=== PATIENT | male | born 1955 | race Caucasian/White ===

== ENCOUNTER 2018-03-04 14:46 | Inpatient (IN) ==
[2018-03-04] MEDS ORDERED: NITROGLYCERIN 0.4 MG SUBLINGUAL TABLET SL PRN (15:38)
[2018-03-04] MEDS ORDERED: FALL RISK - PHARMACY CONSULT MC ONE ×2 (15:38)
[2018-03-04] MEDS ORDERED: BISACODYL 10 MG SUPPOSITORY RECTALLY PRN (15:38)
[2018-03-04] MEDS ORDERED: ZOLPIDEM 5 MG TABLET PO PRN (15:38)
[2018-03-04] MEDS ORDERED: ACETAMINOPHEN 325 MG TABLET PO PRN (15:38)
[2018-03-04] MEDS ORDERED: MAG-AL + SIM ORAL LIQUID 30ml PO PRN (15:38)
[2018-03-04] MEDS ORDERED: LORazepam 0.5 MG TABLET PO PRN (15:38)
--- NOTE | 2018-03-04 15:49 | IRU History & Physical Report ---
HPI IRU Date: Date: 03/04/18 Time: 1544 Chief complaint: I had a stroke HPI: Mr. Mendez is a very pleasant 62-year-old male referred by Dr. Kathy Hermosillo. His primary care physician is Dr. Kalen Nice. (His daughter is Thelma Levi MD). He presented to the emergency department at [facility] on 02/27/2018 with tingling and numbness on the right side of his body. This started at home initially with some numbness and tingling of the right side of his face on the evening prior to admission (02/26/2018). There was no discomfort or pain. Tingling involved the right face, as well as the right arm and right leg. No other systemic symptoms was noted. Patient did admit to being noncompliant with his antihypertensive medication as well as treatment for his diabetes for quite some time. In the emergency department his blood pressure was quite high at 191/116. CT scan of the head revealed no acute hemorrhage and no acute infarct. There was evidence of chronic right frontal lacunar infarct and mild periventricular white matter disease. He was outside the window for TPA. He was given aspirin and fluids as well as insulin. He was then admitted to the hospitalist service on 02/27/2018. At that time he did report weakness in the right arm and leg with difficulty with right hand coordination and fine motor skills. He also had a mild headache and some difficulty walking and felt off balance. He felt numbness and lack of sensation in the right side of his body with secondary difficulty controlling the movement on the right side. As noted, the patient has history of hypertension but does not take his medications on a regular basis. Typically his blood pressures are 180 or so according to the patient. He also has history of diabetes mellitus but does not take his blood sugars on a regular basis. His blood sugars may often be around 400 when he does check them. He does not see his doctor on a regular basis and does not know his A1C at home. On acute care it was 12.5% on 02/27/18. Follow-up CT scan of the head on February 28 showed no acute changes. Carotid Doppler study 02/28/2018 showed no significant stenoses. MRI brain 02/28/2018 did demonstrate acute infarct in the left thalamus. He was seen by Dr. Arriaza who confirmed that diagnosis. Dr. Arriaza recommended Plavix plus aspirin 81 mg daily for 3-6 months with continued Plavix alone after that if no new symptoms. He recommended optimizing treatment for hyperlipidemia, hypertension and diabetes along with initiation of PT and OT. With regard to his cardiac status, he has seen Dr. Londono in the past. He has history of minimal coronary disease in 2008 on catheterization. Transthoracic echocardiogram 03/03/2018 demonstrated ejection fraction 30-35% without evidence of intracardiac thrombus nor PFO by bubble study. He did undergo cardiac catheterization Dr. Londono on 03/03/2018 demonstrating small vessel disease along with LV dysfunction with ejection fraction 30-35%. A defibrillator vest was recommended at this time. He was diagnosed with nonischemic dilated cardiomyopathy. Prior to this event, the patient was independent with all activities of daily living. He was able to ambulate without assistive device and independently. 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 He is very active. The patient is right-handed. He reports it has been difficult to write since the stroke. He has also been more emotional since the stroke although states that he was somewhat that way prior. Patient lives in his own home with his . They have one step to get into the home. On acute care his blood pressures have continued to be a bit elevated with diastolics typically around 90-111. His systolic BP's have been 140's - 160's. His blood sugars have improved and are now running 158-to 39. Had a 330 blood sugar a couple of days ago. It is also noted that he has had some hypercalcemia with elevated PTH. His LDH is 102 with a goal of 70 or less. Currently the patient is independent with eating but requires minimum assistance with grooming, bathing and upper body dressing. He requires moderate assistance with lower body dressing, minimum assistance with toileting, bed/ chair/wheelchair transfers and toilet transfers. He requires minimum assistance with walking with a rolling walker 300 feet. He requires minimal assistance for comprehension. He is impulsive at times and demonstrates poor safety awareness despite instructions. Uncertain if he has adequate carryover ability. Also reports feeling somewhat dizzy. He finds it difficult to control movement in the right arm and leg. The following medical conditions are noted and require active monitoring and/or management: 1. Acute left thalamic ischemic stroke with the following deficits: Markedly reduced sensation involving the right face, right upper and lower extremities with subsequent inability to adequately control movement in these areas. In addition, he has objective evidence of reduced strength in the right upper and lower extremities with reduced fine motor movement in the right hand. His speech is fluent. He does not have any evidence of dysphagia. 2. Hypertension, historically not well controlled due to medication noncompliance. Permissive hypertension at present. 3. Nonischemic dilated cardiomyopathy with ejection fraction 30-35% based on echocardiogram and left ventriculogram. He will need a LifeVest. He has some chronic tachycardia (sinus). 4. Diabetes mellitus type 2 not controlled and with poor medication compliance. A1C 12%. The following therapies will be needed: 1. Physical therapy: for transfers and ambulation and stairs. 2. Occupational therapy: for ADL's and transfers. 3. Medical management: for the above conditions. 4. 24 hour Rehabilitation Nursing to monitor and address the following: Monitoring blood sugars, blood pressures, neurologic status and cardiac status in view of his dilated cardiomyopathy. 5. Dietitian: In view of his diabetes. [facility] Patient Stated Medical History Hypertension Yes Diabetes Mellitus Type 2 Yes Hx Kidney Stones Yes Clinic Medical History (Last Updated 02/27/18 @ 14:24 by Jayshree Andino APRN) Hypercalcemia (Chronic Medical ~01/2014) Diabetes mellitus type 2, uncontrolled, without complications (Chronic Medical ~ 2010) Diabetic peripheral neuropathy associated with type 2 diabetes mellitus ( Chronic Medical) Obesity (BMI 30-39.9) (Chronic Medical) Hyperparathyroidism, primary (Chronic Medical ~07/08/16) Surgical History: Heart Cath-2008. Removal of kidney stones (patient not certain of technique). Heart cath February 2018 Family History Updates: Father at age 90. Mother at age 74 of lymphoma. 2 sisters and a brother have all . Brother had lung cancer, a sister had COPD, and other sister of suicide. She was schizophrenic. - Social History Smoking status: Never smoker Substance use type: does not use Alcohol intake frequency: holidays/special occasions only Housing: house Household members: spouse Current occupational status: employed Current occupation: [employer] business Current residence: Apartment/Private Home Social history: Patient is and lives with his in their own home. 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 He remains quite active. Review of Systems - Constitutional Constitutional: Present: fatigue, weakness, weight loss (reports maximum weight of 350 pounds. This dropped into thousand 10 1 diabetes was diagnosed. He went down to 290 and then about a year ago was 240. He believes he has lost further.) . Absent: anorexia, chills, fever(s), headache(s), lethargy, malaise, night sweats, weight gain - EENMT Eyes: Absent: blurry vision, change in vision, diplopia Mouth/Throat: Absent: changes in swallowing, painful swallowing, change in taste , bleeding gums, change in voice - Cardiovascular Cardiovascular: Absent: chest pain, palpitations, syncope, dyspnea on exertion, orthopnea, edema, cyanosis, heart murmur Rhythm: Present: regular rhythm Vascular: Absent: intermittent claudication, pedal edema, unilateral swelling - Respiratory Respiratory: Absent: cough, dyspnea, hemoptysis, dyspnea on exertion, wheezing, pain on inspiration, chest congestion, excessive phlegm production - Gastrointestinal Gastrointestinal: Absent: abdominal pain, change in bowel habits, constipation, diarrhea, dyspepsia, dysphagia, early satiety, hematochezia, melena, nausea, vomiting - Musculoskeletal Musculoskeletal: Present: myalgias. Absent: abnormal gait, arthralgias, back pain, joint swelling, limited range of motion, muscle weakness - Integumentary/Breasts Integumentary: Absent: alopecia, erythema, lesions, pruritus, rash, jaundice - Neurological Neurological: Present: focal weakness, numbness, paresthesias, weakness (right arm and leg). Absent: abnormal gait, abnormal movements, abnormal speech, confusion, convulsions, dizziness, frequent falls, headache(s), loss of vision, memory loss, tremor(s) - Psychiatric Psychiatric: Present: other (more tearful and emotional recently ). Absent: abnormal sleep pattern, anxiety, depression - Endocrine Endocrine: Absent: cold intolerance, flushing, heat intolerance, palpitations - Hematologic/Lymphatic Hematologic/Lymphatic: Absent: easy bleeding, easy bruising, lymphadenopathy - Allergic/Immunologic Allergic/Immunologic: Absent: urticaria Medications Home Medications Medication Instructions Recorded Confirmed Type Insulin Glargine [Lantus] 35 unit SQ HS 02/27/18 02/27/18 History Lisinopril [Prinivil] 40 mg PO DAILY 02/27/18 02/27/18 History Metformin XR [Glucophage Xr] 500 mg PO BID 02/27/18 02/27/18 History Allergies Allergy/AdvReac Type Severity Reaction Status Date / Time No Known Allergies Allergy Verified 02/27/18 12:00 Results IRU - Labs Labs: I have reviewed inpatient records. Exam - Constitutional Present: no acute distress, well nourished, well developed, obese, cooperative Comments: He is awake and alert and well-oriented. Occasionally somewhat tearful. Speech not slurred. - Routine HEENT Exam Head: Present: normocephalic, atraumatic. Absent: cushingoid faces, abrasion, laceration, hematoma Eye: Present: EOMI, PERRL. Absent: conjunctival icterus, scleral injection, periorbital swelling, nystagmus ENT: Present: mucous membranes moist, oropharynx clear Comments: Has a single artificial tooth in maxilla. Rest of his dentition appears to be unremarkable. - Routine Neck Exam Present: supple, full ROM, trachea midline. Absent: lymphadenopathy, thyromegaly, tenderness, swelling - Routine Chest/Breast/Axilla Exam Chest wall: Absent: tenderness, mass Axillae: Absent: lymphadenopathy, mass - Routine Respiratory Exam Present: CTA bilaterally. Absent: accessory muscle use, decreased breath sounds , prolonged expiratory phase, rales, respiratory distress, rhonchi, stridor, wheezes, crackles, distant breath sounds - Routine Cardiovascular Exam Present: RRR, S1, S2, no murmur. Absent: gallop, S3, S4, click, irregular rhythm - Routine Abdominal Exam Present: soft, normoactive bowel sounds, non distended, non tender. Absent: rebound, guarding, firm, rigid, organomegaly, mass, hernia, wound - Routine Extremities Exam Present: no edema, non tender, pulses intact, normal capillary refill. Absent: cyanosis, clubbing - Routine Back/Spine/Pelvis Exam Back/Spine: Present: full ROM. Absent: scoliosis, kyphosis - Routine Skin Exam Present: intact, dry, warm. Absent: cyanosis, erythema, pallor, mottling, petechiae, urticaria, lesions, jaundice - Routine Neurological Exam Present: alert, oriented X3, CN II-XII intact, sensory deficit (markedly reduced sensation right face, right upper extremity and right lower extremity.) , motor deficit (strength is 4+ and right arm and right leg. No facial droop.), moving all extremities, normal speech. Absent: facial asymmetry, tremors - Routine Psychiatric Exam Present: normal affect (but in general more "emotional"), normal thought process , cooperative, good insight, good judgment. Absent: depressed, anxious Sepsis Assessment - Evaluation Severe Sepsis: none seen IRU A/P (1) Ischemic cerebrovascular accident (CVA) Current visit: No Status: Acute Patient has suffered an acute presumably thrombotic CVA involving the left thalamus. This has resulted predominantly in sensory deficit on the right side of his body with secondary motor deficit and inability to control his right arm and leg adequately. His speech and swallowing do not appear to be involved. He will require an intensive program of occupational therapy and physical therapy with medical supervision. (2) Essential (primary) hypertension Current visit: No Status: Chronic His blood pressure is chronically been not well controlled which she admits is due to medication noncompliance. We will monitor carefully and work with the hospitalist team in reducing his blood pressure gradually and appropriately. (3) Diabetes mellitus type 2, uncontrolled, without complications Qualifiers: Diabetes mellitus chcf insulin use: with chcf use Qualified Code( s): E11.65 - Type 2 diabetes mellitus with hyperglycemia; Z79.4 - long term acute care registered nurse ( current) use of insulin Current visit: No Status: Chronic He has been on a single dose of insulin in the evening but does not recall how many units. He has not been consistent in taking his insulin nor in monitoring his blood sugars. CDE will be involved in education and encouragement in this regard. (4) Obesity (BMI 30-39.9) Current visit: No Status: Chronic (5) Cardiomyopathy, dilated, nonischemic Current visit: Yes Status: Acute Recent diagnosis of dilated nonischemic cardiomyopathy with ejection fraction 30 -35% noted. A LifeVest has been obtained and he will wear that at the present time. DVT Prophylaxis: SCD's Resuscitation Status: Full Code - Course Hospital Course: Ganesh Flores MD: - Interventions to Obtain Goals Goals Progress/Modifications: This medically complex patient requires a multidisciplinary intensive course of rehabilitation including physical therapy, occupational therapy, 24 rehabilitation nursing to monitor blood pressures, blood sugars and neurologic and cardiac status. He requires medical supervision. This cannot be provided at a less intensive level of care because of the multiple medical problems as well as need for intensive therapy.
--- NOTE | 2018-03-04 16:02 | IRU 24Hr Post Admit Eval ---
24 Hr Post Admission Physical - Relevant Changes Relevant Changes: No Reviewed: I have reviewed the patient's information and concur with the finding and results of the pre-admission screen. Certification: I certify the patient for rehabilitation. - Patient Condition (1) Ischemic cerebrovascular accident (CVA) Status: Acute Code(s): I63.9 - Cerebral infarction, unspecified Classification: Present on IRF Admission, IRF Tx That Should Address Diagnosis, Diagnosis Requiring Medical Follow Up (2) Essential (primary) hypertension Status: Chronic Code(s): I10 - Essential (primary) hypertension Classification: Present on IRF Admission, IRF Tx That Should Address Diagnosis, Diagnosis Requiring Medical Follow Up (3) Diabetes mellitus type 2, uncontrolled, without complications Onset Date: ~2010 Status: Chronic Qualifiers: Diabetes mellitus ferry terminal agent insulin use: with ferry terminal agent use Qualified Code( s): E11.65 - Type 2 diabetes mellitus with hyperglycemia; Z79.4 - half-way ( current) use of insulin Code(s): E11.65 - Type 2 diabetes mellitus with hyperglycemia Classification: Present on IRF Admission, IRF Tx That Should Address Diagnosis, Diagnosis Requiring Medical Follow Up (4) Obesity (BMI 30-39.9) Status: Chronic Code(s): E66.9 - Obesity, unspecified Classification: Present on IRF Admission, IRF Tx That Should Address Diagnosis, Diagnosis Requiring Medical Follow Up (5) Cardiomyopathy, dilated, nonischemic Status: Acute Code(s): I42.0 - Dilated cardiomyopathy Classification: Present on IRF Admission, IRF Tx That Should Address Diagnosis, Diagnosis Requiring Medical Follow Up - Prior Functional Status Lives With: Spouse Residence Type: Apartment/Private Home Assitive Devices: None Prior Functional Status: Indep. at home or school, Indep. w/ IADL - Current Functional Status Current Level of Function: Currently the patient is independent with eating but requires minimum assistance with grooming, bathing and upper body dressing. He requires moderate assistance with lower body dressing, minimum assistance with toileting, bed/ chair/wheelchair transfers and toilet transfers. He requires minimum assistance with walking with a rolling walker 300 feet. He requires minimal assistance for comprehension. He is impulsive at times and demonstrates poor safety awareness despite instructions. Uncertain if he has adequate carryover ability. Also reports feeling somewhat dizzy. Failed Alternative Therapy: Arrived from Acute Care Patient Requirements: The patient requires oversight by rehabilitation physician to manage their rehabilitation treatment plan and multidisciplinary approach to care that can only be provided in an IRF and requires a multidisciplinary approach to care, provided by professional PTs, OTs, STs, dieticians, RTs, rehabilitation nurses and is not available in lesser levels of care. Limitations Req: Mobility Impairment, ADL Impairment Physical Therapy Minutes: 90 Occupational Therapy Minutes: 90 Therapy: The patient is to receive therapy at least 5 days a week. - Complications/Comorbidities Impact on Functional Outcomes: The patient's right-sided numbness and motor weakness will negatively impact his functional outcome. In addition, his new diagnosis of dilated Tarah myopathy will likely negatively impacted his functional outcome. Barriers to Discharge: Weakness, Balance, Medical Limitation - Plan to Avoid Complications Plan to Avoid Complications: The patient cannot receive this care in a lesser intensive setting such as Senior Living or Outpatient Therapy due to the patient requiring the following : This medically complex patient requires close monitoring of his blood sugars, blood pressures, cardiac status in view of his dilated cardiomyopathy, monitoring of his heart rhythm as well as an intensive program of physical therapy and occupational therapy. He requires medical supervision. He cannot be cared for at a less intensive level of care.
[2018-03-04 16:17] VITALS: BMI 35.4
[2018-03-04] MEDS: INSULIN ASPART 100unit/ml INJECTION SQ SCH (17:44)
[2018-03-04] MEDS: ATORVASTATIN 40 MG TABLET PO SCH (21:12)
[2018-03-04] MEDS: INSULIN GLARGINE 100unit/ml INJECTION SQ SCH (21:12)
[2018-03-05] MEDS: INSULIN ASPART 100unit/ml INJECTION SQ SCH ×3 (08:21→17:31)
[2018-03-05] MEDS: ASPIRIN *EC* 81 MG TABLET PO SCH (08:21)
[2018-03-05] MEDS: LISINOPRIL 20 MG TABLET PO SCH (08:23)
[2018-03-05] MEDS: POLYETHYL GLYCOL 3350 17gm PACKET PO SCH (08:30)
[2018-03-05] MEDS: ENOXAPARIN 40 MG/0.4 ML INJECTION SQ SCH (08:55)
[2018-03-05] MEDS: CLOPIDOGREL 75 MG TABLET PO SCH (08:55)
[2018-03-05] MEDS ORDERED: ASPIRIN 325 MG TABLET PO SCH (09:00)
[2018-03-05] MEDS: INSULIN ASPART 100unit/ml INJECTION SQ PRN ×2 (10:34→22:16)
[2018-03-05] MEDS: HYDROCODONE/APAP 5mg/325mg TABLET PO PRN (11:10)
[2018-03-05] MEDS: SENNA + DOCUSATE TABLET PO SCH (11:10)
--- NOTE | 2018-03-05 11:54 | Consult Note ---
Consult Information - Data of Consult Consult date: 03/05/18 Requesting Physician: Ganesh Flores MD Primary Care Provider: Kalen Nice MD - Consult Narrative Reason for consult: Medical management, recent CVA History of present illness: Wiliam Mendez is a pleasant 62-year-old male patient of Dr. Kalen Nice. On 10/04 he developed right sided paresthesias. Symptoms started as right mouth numbness and he initially thought it was dental in nature. By mid-afternoon, he had developed right arm and leg numbness and tingling. He also has some weakness to right arm/leg as well as difficulty with right hand coordination with fine motor skills. He denied any vision changes such as blurred or double vision, loss of visual pagan or floaters. He has also had some difficulty walking and feels off balance, like his right leg is weaker than his left. He does have a history of some chronic paresthesias to both feet and his fingers from diabetes, but it was much more pronounced on the right compared to usual. He has a history of uncontrolled hypertension and type 2 diabetes. He presented to [facility] emergency department on 02/27/18 for evaluation of his neurologic symptoms. Head CT was negative for acute infarct or bleed. He was outside the window for TPA. His CBC was only positive for mild leukopenia with a white count of 4.4. He was hyperglycemic with a glucose of 376. He was mildly hypercalcemic with a calcium level of 10.7. Chemistry panel otherwise was unremarkable. Troponin was negative. Chest x-ray was negative for failure or infiltrates. Urinalysis was positive for 3+ glucose and trace ketones but no UTI. He was hypertensive in the emergency department with blood pressures ranging from 182-205/107-119 mmHg. He admits to being noncompliant with his medications. He was given aspirin 324 mg, a 500 cc bolus of normal saline, and 6 units of regular insulin. He was admitted to the hospitalist service for further evaluation of his strokelike symptoms. During his acute hospitalization , he underwent extensive evaluation. Echocardiogram revealed global hypokinesia with EF of 35%, left ventricular hypertrophy with mild valvular disease. Carotid dopplers revealed no evidence of significant arteriosclerotic plaque or stenosis bilaterally. He was started on atorvastatin for hyperlipidemia. Blood sugars remained elevated throughout his admission, though improved with adjustments and gradual increases to his medications. Due to worsening neurologic symptoms, MRI was obtained on 02/28 which revealed small focus of restricted diffusion within left thalamus compatible with acute/recent infarct and mild/moderate deep/subcortical white matter disease likely secondary to chronic small vessel ischemia. Dr. Arriaza (neuro) was consulted and recommended initiation of Plavix with daily ASA. Despite treatment, he remained hypertensive and tachycardic. Dr. Londono (cardio) was consulted. VALENTINO and heart cath done by Dr. Londono on 03/03 revealed small vessel CAD with LV dysfunction and EF 30-35% and confirmed global hypokinesia with EF 30-35% and trace/mild valvular disease. Dr. Londono recommended LifeVest for dilated non-ischemic cardiomyopathy with EF 30-35%. His blood sugars gradually improved. He received a steroid injection to his right shoulder by Dr. Leon (ortho) on 03/04 due to chronic shoulder pain with some improvement. He was transferred to IRU on 03/04/18 for continued rehab to improve strength and functional abilities. The hospitalist service was consulted for continued medical management. Multiple medications changes were made during his acute hospitalization, as follows: * Lipitor 40mg QHS initiated. * Plavix 75mg daily initiated. * NovoLog 7 units with meals initiated. * Metoprolol tartrate 25mg BID initiated. * Lisinopril decreased to 20mg daily. * Lantus increased to 40 units QHS. * Lovenox SQ initiated for DVT prophylaxes. Past Medical History Medical History: Medical History (Last Updated 03/05/18 @ 12:02 by FAREED Rene) Hyperlipidemia (Chronic) GERD (gastroesophageal reflux disease) (Chronic) Cardiomyopathy, dilated, nonischemic (Chronic) Left ventricular hypertrophy and global hypokinesis with EF 35% - 02/2018. Hypertension (Chronic) Ischemic stroke (Acute) 02/26/18 - Left thalamic ischemic stroke with right-sided paresthesias and weakness Hyperparathyroidism, primary (Chronic) Onset Date: ~07/08/16 Hypercalcemia (Chronic) Onset Date: ~01/2014 Diabetes mellitus type 2, uncontrolled, without complications (Chronic) Onset Date: ~2010 Diabetic peripheral neuropathy associated with type 2 diabetes mellitus (Chronic ) Obesity (BMI 30-39.9) (Chronic) Surgical History: Heart Cath-2008. Removal of kidney stones (patient not certain of technique). Heart cath February 2018 Family History: Father at age 90. Mother at age 74 of lymphoma. 2 sisters and a brother have all . Brother had lung cancer, a sister had COPD, and other sister of suicide. She was schizophrenic. Family History: As Above - Social History Smoking status: Never smoker Substance use type: does not use Alcohol intake frequency: holidays/special occasions only Last drink: unknown Housing: house Household members: spouse Current occupational status: employed Current residence: Apartment/Private Home Social history: PCP - Dr. Kalen Nice. Cardio - Dr. Londono. Neuro - Dr. Arriaza. Review of Systems All systems PM: 10-point ROS was reviewed, no additional remarkable complaints except - Constitutional Constitutional: Present: weakness. Absent: chills, fatigue, fever(s) - EENMT Eyes: Absent: change in vision, loss of vision, photophobia Ears: Absent: ear pain Balance: Absent: vertigo Nose: Absent: nosebleeds Mouth/Throat: Absent: sore throat, dry mouth - Cardiovascular Cardiovascular: Absent: chest pain, palpitations, dyspnea on exertion, orthopnea Rhythm: Present: other (tachycardia) Vascular: Absent: pallor of an extermity, pedal edema - Respiratory Respiratory: Absent: cough, dyspnea, dyspnea on exertion - Gastrointestinal Gastrointestinal: Present: constipation, nausea. Absent: abdominal pain, vomiting - Genitourinary Genitourinary: Absent: dysuria, flank pain, hematuria - Musculoskeletal Musculoskeletal: Present: muscle weakness. Absent: back pain, deformity Musculoskeletal Comments: Chronic right shoulder pain. - Integumentary/Breasts Integumentary: Absent: rash - Neurological Neurological: Present: focal weakness (right sided), headache(s). Absent: dizziness, vertigo - Psychiatric Psychiatric: Present: depression - Endocrine Endocrine: Absent: heat intolerance, palpitations - Hematologic/Lymphatic Hematologic/Lymphatic: Absent: easy bruising - Allergic/Immunologic Allergic/Immunologic: Absent: seasonal rhinorrhea Medications Home Medications Medication Instructions Recorded Confirmed Type Insulin Glargine [Lantus] 35 unit SQ HS 02/27/18 03/04/18 History Lisinopril [Prinivil] 40 mg PO DAILY 02/27/18 03/04/18 History Metformin XR [Glucophage Xr] 500 mg PO BID 02/27/18 03/04/18 History Allergies Allergy/AdvReac Type Severity Reaction Status Date / Time No Known Allergies Allergy Verified 02/27/18 12:00 Exam Vital Signs: Temperature 98.4 F 03/05/18 07:35 Pulse Rate 111 H 03/05/18 07:35 Respiratory Rate 16 03/05/18 07:35 Blood Pressure 145/99 H 03/05/18 07:35 Pulse Oximetry 95 03/05/18 07:35 Height/Weight/BMI: Height 5 ft 10 in Weight 246 lb 14.684 oz Body Mass Index 35.4 Comments: Patient eating lunch. - Constitutional Present: no acute distress, well nourished, well developed, cooperative - Routine HEENT Exam Head: Present: normocephalic, atraumatic Eye: Present: PERRL. Absent: conjunctival icterus ENT: Present: mucous membranes moist, oropharynx clear - Routine Neck Exam Present: supple, full ROM, trachea midline - Routine Chest/Breast/Axilla Exam Chest wall: Absent: tenderness, pacemaker Comments: LifeVest - Routine Respiratory Exam Present: CTA bilaterally. Absent: respiratory distress, wheezes - Routine Cardiovascular Exam Present: S1, S2, tachycardia - Routine Abdominal Exam Present: soft, normoactive bowel sounds, non tender - Routine Extremities Exam Present: no edema, pulses intact - Routine Back/Spine/Pelvis Exam Back/Spine: Present: full ROM. Absent: vertebral tenderness - Routine Skin Exam Present: intact, dry, warm Comments: Afebrile - Routine Neurological Exam Present: alert, oriented X3, moving all extremities, hearing grossly intact, facial asymmetry (right), normal speech - Routine Psychiatric Exam Present: cooperative, depressed Results - Labs CBC & Chem 7: 03/05/18 05:33 03/05/18 05:33 Assessment and Plan Assessment and Plan: Assessment Left thalamic ischemic stroke with right-sided paresthesias and weakness - 2017 Hypertension, liable Sinus tachycardia with placement of LifeVest on 03/04/18 Uncontrolled diabetes with peripheral neuropathy. Hemoglobin A1c = 12.5% Obesity with BMI of >35 Global hypokinesis on echocardiogram with ejection fraction of 35% - 02/2018. Cardiomyopathy with left ventricular hypertrophy Mild Hypercalcemia (10.5) with elevated PTH of 138.2 GERD Hyperlipidemia Plan Agree with admission to IRU for continued strengthening and improvement in functional abilities. Encourage participation in therapies. Monitor closely for signs of worsening depression and mood changes. Dr. Londono to continue to follow regarding hypertension and tachycardia. Multiple medications changes made to home medications during acute inpatient hospitalization. Will continue as follows: * Lipitor 40mg QHS initiated. * Plavix 75mg daily initiated. * NovoLog 7 units with meals initiated. * Metoprolol tartrate 25mg BID initiated. * Lisinopril decreased to 20mg daily. * Lantus increased to 40 units QHS. * Lovenox SQ initiated for DVT prophylaxes. Monitor blood sugars closely. Patient received steroid injection to right should for pain on 03/04 which may increase blood sugars. Adjust insulins as indicated. Patient instructed to follow up with Dr. Chavez regarding elevated PTH and calcium 1-2 weeks following discharge from IRU. Patient instructed to follow up with Dr. Nice 1 week following discharge from IRU. Due to recent placement of LifeVest, patient is to limit activity until 03/07/18 with a lifting weight restriction of 10 pounds and no pushing/pulling x 1 week ( until 03/11/18) Upon discharge, patient's care will be returned to his PCP, Dr. Nice. DVT Prophylaxis: SCD's, Lovenox GI Prophylaxis: Protonix Resuscitation Status: Full Code - Time spent with patient Time with patient PN: 70 minutes - Physician Narrative Physician: Steve Messina MD Narrative: Date: 03/05/18 Time: 1944 Have independently interviewed & examined pt. Chart reviewed. Case discussed with my PA. Above care plan developed with my supervision; agree with above. Admitted to IRU for restorative therapy following CVA. Had good day today. Worked hard with therapy for 3 hours-very tiring. Did activities even after therapy done. Motivate to recover, some frustration at slow progress. Not sleeping well at night despite Ambien. Eating well. Stools starting to move more. Breathing well. Lungs: clear bilaterally CV: regular AB; soft nt/nd MSE: awake alert appropriate Plan: Agree with admission of patient to IRU to maximize functional status following CVA. Encourage therapy. Will increase Ambien to 10mg at night to help sleep, may have Tylenol PM if needed. Continue with medications outlined on acute. Blood sugars showing improvement. Will continue to follow patient while on IRU. Medically stable for IRU floor activities. Hospital Course Summary Disclaimer: The visit summary below is not to be considered part of the above Progress Note. Hospital Course: Plan - 03/05/18: Agree with admission to IRU for continued strengthening and improvement in functional abilities. Encourage participation in therapies. Monitor closely for signs of worsening depression and mood changes. Dr. Londono to continue to follow regarding hypertension and tachycardia. Multiple medications changes made to home medications during acute inpatient hospitalization. Will continue as follows: * Lipitor 40mg QHS initiated. * Plavix 75mg daily initiated. * NovoLog 7 units with meals initiated. * Metoprolol tartrate 25mg BID initiated. * Lisinopril decreased to 20mg daily. * Lantus increased to 40 units QHS. * Lovenox SQ initiated for DVT prophylaxes. Monitor blood sugars closely. Patient received steroid injection to right should for pain on 03/04 which may increase blood sugars. Adjust insulins as indicated. Patient instructed to follow up with Dr. Chavez regarding elevated PTH and calcium 1-2 weeks following discharge from IRU. Patient instructed to follow up with Dr. Nice 1 week following discharge from IRU. Due to recent placement of LifeVest, patient is to limit activity until 03/07/18 with a lifting weight restriction of 10 pounds and no pushing/pulling x 1 week ( until 03/11/18) Upon discharge, patient's care will be returned to his PCP, Dr. Nice.
[2018-03-05] MEDS: SALINE FLUSH 10ml SYRINGE IVF PRN ×2 (17:31→22:11)
[2018-03-05] MEDS: INSULIN GLARGINE 100unit/ml INJECTION SQ SCH (22:10)
[2018-03-05] MEDS: ATORVASTATIN 40 MG TABLET PO SCH (22:10)
[2018-03-06] MEDS: PANTOPRAZOLE 20 MG TABLET PO SCH (06:54)
[2018-03-06] MEDS: LISINOPRIL 20 MG TABLET PO SCH (09:27)
[2018-03-06] MEDS: ASPIRIN *EC* 81 MG TABLET PO SCH (09:27)
[2018-03-06] MEDS: CLOPIDOGREL 75 MG TABLET PO SCH (09:27)
[2018-03-06] MEDS: SENNA + DOCUSATE TABLET PO SCH (09:27)
[2018-03-06] MEDS: SALINE FLUSH 10ml SYRINGE IVF PRN ×2 (09:28→22:02)
[2018-03-06] MEDS: ENOXAPARIN 40 MG/0.4 ML INJECTION SQ SCH (09:28)
[2018-03-06] MEDS: POLYETHYL GLYCOL 3350 17gm PACKET PO SCH (09:28)
[2018-03-06] MEDS: INSULIN ASPART 100unit/ml INJECTION SQ SCH ×3 (09:28→18:11)
[2018-03-06] MEDS: INSULIN GLARGINE 100unit/ml INJECTION SQ SCH (21:59)
[2018-03-06] MEDS: INSULIN ASPART 100unit/ml INJECTION SQ PRN (21:59)
[2018-03-06] MEDS: ATORVASTATIN 40 MG TABLET PO SCH (21:59)
[2018-03-07] MEDS: PANTOPRAZOLE 20 MG TABLET PO SCH ×2 (05:06→10:49)
[2018-03-07] MEDS: INSULIN ASPART 100unit/ml INJECTION SQ SCH ×3 (08:17→17:35)
[2018-03-07] MEDS: CLOPIDOGREL 75 MG TABLET PO SCH (08:18)
[2018-03-07] MEDS: ENOXAPARIN 40 MG/0.4 ML INJECTION SQ SCH (08:18)
[2018-03-07] MEDS: LISINOPRIL 20 MG TABLET PO SCH (08:18)
[2018-03-07] MEDS: ASPIRIN *EC* 81 MG TABLET PO SCH (08:18)
[2018-03-07] MEDS: POLYETHYL GLYCOL 3350 17gm PACKET PO SCH (08:19)
[2018-03-07] MEDS: SENNA + DOCUSATE TABLET PO SCH (08:19)
--- NOTE | 2018-03-07 10:17 | IRU Progress Note ---
- Subjective/Serverity of Illness Date: 03/07/18 Mr. Mendez was evaluated in his room on inpatient rehabilitation. According to occupational therapy, his cognition is improved today compared to couple of days ago. He is awake and alert. He remembered my name immediately upon my entrance into the room. He reports his bowels are somewhat sluggish. In addition he notes that his left side is now fatiguing quite a bit. His stroke affected the right side of his body. Right upper extremity continues to be very "clumsy" with regard to control and fine motor movement. Medically he is stable. He denies any chest pain or shortness of breath. His appetite is good. Brief therapy update: For physical therapy use able to transfer with moderate assistance. He is able to ambulate 210 feet with minimum assistance with a front -wheeled walker. He is improving with regard to occupational therapy in terms of dressing. Update on medical issues were actively monitoring or managing as follows currently: The following medical conditions are noted and require active monitoring and/or management: 1. Acute left thalamic ischemic stroke with the following deficits: Continues to have clumsiness of the right upper extremity and weakness of right upper and right lower extremities. He states that the numbness is perhaps a bit better on the right side. Has some decreased sensation in the right face as well. Fine motor movement is reduced in the right upper extremity. 2. Hypertension: His blood pressures are much more well controlled in the 120- 130 range. No hypotensive episodes are noted. 3. Nonischemic dilated cardiomyopathy with ejection fraction 30-35% based on echocardiogram and left ventriculogram. He is wearing a LifeVest. Telemetry noted. Denies current dyspnea with activity. 4. Diabetes mellitus type 2 not controlled and with poor medication compliance. Fingerstick blood sugars reviewed and are running 150-160. Much improved control compared to baseline. 5. Slow stools: Would like something more for stools. Exam Vital Signs: Temperature 98.6 F 03/07/18 07:21 Pulse Rate 79 03/07/18 07:21 Respiratory Rate 16 03/07/18 07:21 Blood Pressure 145/94 H 03/07/18 07:21 Pulse Oximetry 97 03/07/18 07:21 Height/Weight/BMI: Height 1.78 m Weight 112 kg Body Mass Index 35.4 - Constitutional Present: well nourished, well developed, obese, cooperative - Routine HEENT Exam Head: Present: normocephalic Eye: Present: EOMI, scleral injection (Left worse than right ) ENT: Present: mucous membranes moist, oropharynx clear - Routine Neck Exam Present: supple - Routine Respiratory Exam Present: CTA bilaterally. Absent: decreased breath sounds, wheezes, crackles - Routine Cardiovascular Exam Present: RRR, S1, S2. Absent: murmur - Routine Abdominal Exam Present: soft, normoactive bowel sounds, non distended. Absent: tenderness - Routine Extremities Exam Present: no edema, normal capillary refill - Routine Skin Exam Present: dry, warm - Routine Neurological Exam Present: alert, oriented X3, CN II-XII intact, sensory deficit (right side), motor deficit (right upper lower extremity continue to demonstrate reduced strength. Fine motor movement reduced right upper extremity.) - Routine Psychiatric Exam Present: normal affect, cooperative Results IRU - Labs Labs: Have reviewed labs, vital signs and other providers notes. IRU A/P (1) Ischemic cerebrovascular accident (CVA) Current visit: No Status: Acute Patient seems stable with regard to his neurologic status. Continues to struggle with right-sided numbness/tingling as well as reduced fine motor movement and strength. From a functional standpoint he is improved both with OT and PT. (2) Essential (primary) hypertension Current visit: No Status: Chronic Blood pressures demonstrate markedly improved control at 120-130 systolic. (3) Diabetes mellitus type 2, uncontrolled, without complications Qualifiers: Diabetes mellitus terminal worker insulin use: with terminal worker use Qualified Code( s): E11.65 - Type 2 diabetes mellitus with hyperglycemia; Z79.4 - watermaster ( current) use of insulin Current visit: No Status: Chronic Blood sugars to demonstrate improved control without evidence of hypoglycemia. (4) Obesity (BMI 30-39.9) Current visit: No Status: Chronic (5) Cardiomyopathy, dilated, nonischemic Current visit: Yes Status: Acute (6) Slow transit constipation Current visit: Yes Status: Acute DVT Prophylaxis: SCD's, Lovenox Resuscitation Status: Full Code - Course Hospital Course: Ganesh Flores MD: 03/07/18 10:21 Patient very cooperative with therapy. Sluggish stools. Right-sided numbness and weakness persist. Improving with therapy. - Interventions to Obtain Goals PT Treatment Plan: Balance/Proprioception, Functional Activities, Gait Training , Patient/Family Education, Therapeutic Exercise OT Treatment Plan: ADL (Basic Care), Balance Training, IADL, Pt./Family Education, Ther. Exercise for ADL Goals Progress/Modifications: Patient cooperative with therapy. Continues to demonstrate right-sided weakness. There has been functional improvement over the past 2-3 days. Neurologically he is stable. He continues to wear his LifeVest. No evidence of ventricular tachycardia. Does have some reduced stool output and we will add Colace.Please note that the patient's individual plan of care was developed and documented today, requiring review of therapy notes, medical conditions and anticipated functional recovery. This required additional medical decision making with regard to interaction of the patient's medical issues with the anticipated functional recovery. Please see separate document
--- NOTE | 2018-03-07 10:26 | IRU Plan of Care ---
U Overall Plan of Care - Date Date: 03/07/18 - Patient Impairments (1) Ischemic cerebrovascular accident (CVA) Code(s): I63.9 - Cerebral infarction, unspecified Status: Acute Classification: Present on IRF Admission, IRF Tx That Should Address Diagnosis, Diagnosis Requiring Medical Follow Up (2) Essential (primary) hypertension Code(s): I10 - Essential (primary) hypertension Status: Chronic Classification: Present on IRF Admission, IRF Tx That Should Address Diagnosis, Diagnosis Requiring Medical Follow Up (3) Diabetes mellitus type 2, uncontrolled, without complications Qualifiers: Diabetes mellitus retirement insulin use: with retirement use Qualified Code( s): E11.65 - Type 2 diabetes mellitus with hyperglycemia; Z79.4 - oysterman ( current) use of insulin Code(s): E11.65 - Type 2 diabetes mellitus with hyperglycemia Status: Chronic Classification: Present on IRF Admission, IRF Tx That Should Address Diagnosis, Diagnosis Requiring Medical Follow Up (4) Obesity (BMI 30-39.9) Code(s): E66.9 - Obesity, unspecified Status: Chronic Classification: Present on IRF Admission, IRF Tx That Should Address Diagnosis, Diagnosis Requiring Medical Follow Up (5) Cardiomyopathy, dilated, nonischemic Code(s): I42.0 - Dilated cardiomyopathy Status: Acute Classification: Present on IRF Admission, IRF Tx That Should Address Diagnosis, Diagnosis Requiring Medical Follow Up (6) Slow transit constipation Code(s): K59.01 - Slow transit constipation Status: Acute Classification: IRF Tx That Should Address Diagnosis, Diagnosis Requiring Medical Follow Up - Relevant Changes Relevant Changes: No Reviewed: I have reviewed the patient's information and concur with the finding and results of the pre-admission screen. Certification: I certify the patient for rehabilitation. - Medical Prognosis Medical Prognosis: Good Vital Signs: Last Vital Signs Temp 98.6 F 03/07/18 07:21 Pulse 79 03/07/18 07:21 Resp 16 03/07/18 07:21 BP 145/94 H 03/07/18 07:21 Pulse Ox 97 03/07/18 07:21 - Anticipated Interventions Anticipated Interventions: The patient requires inpatient IRF care for PT, OT, and/or ST for residuals remaining from acute ischemic left thalamic CVA resulting in muscular weakness and strength deficits. An individualized overall plan of care has been developed after careful review of the patient's preadmission screening, post admission physician evaluation and assessments of all therapy disciplines and/ or other pertinent clinicians involved in treating the patient. This indicates medical necessity and rehabilitation necessity have been established through a thorough review of all available medical information. Strength Deficits: Right Upper Extremity, Right Lower Extremity - Current Functional Status Failed Alternative Therapy: Arrived from Acute Care Patient Requires: The patient requires oversight by rehabilitation physician to manage their rehabilitation treatment plan and multidisciplinary approach to care that can only be provided in an IRF and requires a multidisciplinary approach to care, provided by professional PTs, OTs, STs, rehabilitation nurses, and may require STs, dieticians, and RTS. This is not available in lesser levels of care. Physical Therapy Minutes: 90 Occupational Therapy Minutes: 90 Therapy: The patient is to receive therapy at least 5 days a week. - Anticipated LOS/Outcomes Anticipated Functional Outcome: It is anticipated the patient will be able to return home at modified independent level of functioning for ADLs as well as ambulation. It is anticipated his cardiac arrhythmia will be stable. He will likely need to continue wearing LifeVest at home. Expected functional improvements include: -- Modified independant to independant ambulation with or without assistive device -- Modified independant to independant ADL's with or without assistive device -- Return to pre-morbid level of mobility -- Maximize level of mobility and ADL's to decrease burden on any caregiver involved with this patient's care Anticipated Length of Stay (days): 10 Anticipated DC Destination: Home, Self Care, Home Health Service Home Safety Plan: The patient will be provided with the development of a Home Safety Plan for return to a home or home-like environment and and to ensure safety post discharge. - Plan to Avoid Complications Barriers to Attaining Goals: Weakness, Balance, Endurance Plan to Avoid Complications: The patient cannot receive this care in a lesser intensive setting such as [facility] or Outpatient Therapy due to the patient requiring the following : This patient requires close monitoring of blood sugars and blood pressures as well as monitoring of neurologic status. His markedly reduced ejection fraction requires close 24 hour rehabilitation nursing monitoring of his cardiac status. He requires a multidisciplinary, coordinated approach with PT and OT with medical supervision.
[2018-03-07] MEDS: INSULIN ASPART 100unit/ml INJECTION SQ PRN ×2 (11:02→14:33)
--- NOTE | 2018-03-07 11:34 | Cardiology Consult Note ---
<Maribeth Cast Perla - Last Filed: 03/07/18 14:01> History of Present Illness Consult date: 03/04/18 Requesting physician: Ganesh Flores Chief complaint: tachycardia History of present illness: Naun Mendez is a 62 year old male who is known to Dr. Londono with a history of mild CAD in 2008, HTN, HLD and poor controlled DM who developed right sided paresthesias on 02/26/18. He has uncontrolled hypertension and type 2 diabetes. He is to take metformin, Lantus and lisinopril or lisinopril/HCTZ, but he ran out of these medications several months ago and hasn't had them refilled. It is not unusual for a systolic blood pressure to be 180 mmHg or greater. He doesn't check BGM regularly, but does periodically when he doesn't feel well - it's often 400. Troponin was negative. Chest x-ray was negative for failure or infiltrates. Urinalysis was positive for 3+ glucose and trace ketones but no UTI. He was hypertensive with blood pressures ranging from 182-205/107-119 mmHg. He was given aspirin 324 mg, a 500 cc bolus of normal saline, and 6 units of regular insulin. He was admitted to the hospitalist service for further evaluation of his strokelike symptoms. 2D echo was done which revealed reduced EF of 35%, NOELLE performed 03/03/18 showed no intracardiac thrombus or mass, global hypokinesia with ejection fraction of about 30-35%, Trace of mitral regurgitation, Trace of tricuspid regurgitation, Mild atherosclerosis of the descending thoracic aorta, No evidence of xifei-hk-krst shunt using agitated saline. Left heart cath to assess cause of cardiomyopathy 03/03/18, Left main showed about 30% stenosis and trifurcated into left anterior descending, left circumflex and ramus intermedius. Left anterior descending artery was a medium caliber vessel which wrapped around the apex. There was diffuse disease of LAD but no stenosis greater than 30%. First diagonal was a medium caliber vessel with a caudal branch of the diagonal showing 90% stenosis. This was about a 1.5 to 2 mm vessel. Left circumflex artery had minor irregularities with no significant lesions. First marginal was a small caliber vessel in the range of 2 mm diameter with 90% stenosis. Second marginal was free of significant lesions. Ramus intermedius was a medium caliber vessel with diffuse irregularities and disease but no stenosis greater than 30%. Right coronary artery was a mkcssf-me-oapry caliber vessel which was dominant. Proximal RCA had an ectatic area. Remaining course of RCA was diffusely irregular with no significant lesions. He was transferred on 03/04/18 to IRU for PT/OT and strengthening. Dr. Londono is consulted for further management of tachycardia and we appreciate the consult. Review of Systems - Constitutional Constitutional: Present: weakness (rightsided). Absent: chills, fever(s) - EENMT Eyes: Absent: change in vision Balance: Absent: vertigo Mouth/Throat: Absent: sore throat - Cardiovascular Cardiovascular: Absent: chest pain, palpitations, syncope, dyspnea on exertion, orthopnea, heart murmur Vascular: Absent: pedal edema - Respiratory Respiratory: Absent: cough, dyspnea, dyspnea on exertion - Gastrointestinal Gastrointestinal: Absent: abdominal pain, diarrhea, nausea, vomiting - Genitourinary Genitourinary: Absent: dysuria - Musculoskeletal Musculoskeletal: Present: muscle weakness (right side) - Neurological Neurological: Present: paresthesias (right side) - Endocrine Endocrine: Absent: palpitations PFSH Patient Stated Medical History Cerebrovascular Accident Yes Hypertension Yes Diabetes Mellitus Type 2 Yes Constipation No Hx Incontinence No Hx Kidney Stones Yes Clinic Medical History (Last Updated 03/05/18 @ 12:02 by FAREED Rene) Hyperlipidemia (Chronic Medical) GERD (gastroesophageal reflux disease) (Chronic Medical) Cardiomyopathy, dilated, nonischemic (Chronic Medical) Left ventricular hypertrophy and global hypokinesis with EF 35% - 02/2018. Hypertension (Chronic Medical) Ischemic stroke (Acute Medical) 02/26/18 - Left thalamic ischemic stroke with right-sided paresthesias and weakness Hyperparathyroidism, primary (Chronic Medical ~07/08/16) Hypercalcemia (Chronic Medical ~01/2014) Diabetes mellitus type 2, uncontrolled, without complications (Chronic Medical ~ 2010) Diabetic peripheral neuropathy associated with type 2 diabetes mellitus ( Chronic Medical) Obesity (BMI 30-39.9) (Chronic Medical) Surgical History: Heart Cath-2008. Removal of kidney stones (patient not certain of technique). Heart cath February 2018 Family History Updates: Father at age 90. Mother at age 74 of lymphoma. 2 sisters and a brother have all . Brother had lung cancer, a sister had COPD, and other sister of suicide. She was schizophrenic. - Social History Smoking status: Never smoker Substance use type: does not use Alcohol intake frequency: holidays/special occasions only Last drink: unknown Housing: house Household members: spouse Current occupational status: employed Current occupation: [employer] Current residence: Apartment/Private Home Medications Home Medications Medication Instructions Recorded Confirmed Type Metformin XR [Glucophage Xr] 500 mg PO BID 02/27/18 03/04/18 History Aspirin *EC* [Ecotrin] 81 mg PO DAILY tab 03/09/18 Rx Atorvastatin [Lipitor] 40 mg PO HS #30 tab 03/09/18 Rx Clopidogrel [Plavix] 75 mg PO DAILY #30 tab 03/09/18 Rx Insulin Glargine,Hum.rec.anlog 40 unit SQ HS #1 vial 03/09/18 Rx [Lantus] Lisinopril [Prinivil] 20 mg PO DAILY #30 tab 03/09/18 Rx Metformin [Glucophage] 500 mg PO BIDWM #60 tab 03/09/18 Rx PEG 3350 17gm PACKET [Miralax] 17 gm PO DAILY packet 03/09/18 Rx Pantoprazole Sodium [Protonix] 20 mg PO ACB #30 tablet. 03/09/18 Rx Senna + Docusate [Senna Plus 1 tab PO DAILY tab 03/09/18 Rx Tablet] Zolpidem [Ambien] 10 mg PO HS PRN #10 tab 03/09/18 Rx Metoprolol Succinate (XL) [Toprol 100 mg PO DAILY #30 tab 03/11/18 Rx Xl] Allergies Allergy/AdvReac Type Severity Reaction Status Date / Time No Known Allergies Allergy Verified 02/27/18 12:00 Exam Vital signs: Temperature 98.6 F 03/07/18 07:21 Pulse Rate 79 03/07/18 07:21 Respiratory Rate 16 03/07/18 07:21 Blood Pressure 145/94 H 03/07/18 07:21 Pulse Oximetry 97 03/07/18 07:21 - Constitutional no acute distress, well nourished, cooperative - Routine HEENT Exam Head: Present: normocephalic ENT: Present: mucous membranes moist - Routine Neck Exam Absent: JVD, carotid bruit - Routine Chest/Breast/Axilla Exam Chest wall: Absent: tenderness - Routine Respiratory Exam Present: CTA bilaterally. Absent: dyspnea, rales, wheezes - Routine Cardiovascular Exam Present: RRR, no murmur - Routine Abdominal Exam Present: soft, non tender - Routine Extremities Exam Present: no edema - Routine Skin Exam Present: intact, dry, warm - Routine Neurological Exam Present: alert, oriented X3 - Routine Psychiatric Exam Present: normal affect, normal thought process Results 03/07/18 05:00 03/07/18 05:00 CBC 03/07/18 Range/Units 05:00 WBC 6.1 (4.5-11.0) T/MM3 RBC 5.66 (4.50-5.90) M/MM3 Hgb 16.2 (13.5-17.5) GM/DL Hct 47.7 (41-53) % Plt Count 185 (130-400) T/MM3 Neut # (Auto) 3.2 (1.8-7.7) T/MM3 Lymph # (Auto) 2.0 (1-4.8) T/MM3 Anson # (Auto) 0.8 (0-0.8) T/MM3 Eos # (Auto) 0.0 (0-0.5) T/MM3 Baso # (Auto) 0.0 (0-0.2) T/MM3 Comprehensive Metabolic Panel 03/07/18 Range/Units 05:00 Sodium 139 (134-144) MEQ/L Potassium 3.9 D (3.6-5) MEQ/L Chloride 103 (98-107) MEQ/L Carbon Dioxide 25 (22-30) MEQ/L BUN 19.0 (9-20) MG/DL Creatinine 0.6 L (0.8-1.5) mg/dL Glucose 114 H (75-110) MG/DL Calcium 10.8 H (8.4-10.2) MG/DL Intake and Output 03/06/18 03/07/18 03/07/18 22:59 06:59 14:59 Intake Total 120 / 120 Output Total 200 / 200 500 / 500 Balance -80 / -80 -500 / -500 Intake: Oral 120 / 120 Output: Urine 200 / 200 500 / 500 Other: Urine Appearance Clear Cloudy Urine Color Dark Lakshmi Straw Urine Odor Strong Normal # Voids 1 1 - Imaging and Cardiology Imaging & Cardiology Narrative: = = = = = = = = = = = = = = = = = = = = = = = = = = = = = = = = = = = = = = = = = = = = = = = = = = = = = = = = = = = Date of Exam: 03/03/18 Type of Exam(s): CA heart cath LT DATE OF PROCEDURE: March 03, 2018 REFERRING PHYSICIAN: Dr. Kathy Hermosillo The patient is a pleasant 62-year-old gentleman with history of coronary artery disease who was diagnosed with recent onset of new cardiomyopathy with ejection fraction of about 30-35% and was referred for further evaluation by cardiac catheterization and possible intervention. Informed consent was obtained after explaining the procedure and the potential risks to the patient who agreed to proceed with the procedure. PROCEDURE 1. Left heart catheterization. 2. Coronary angiography. 3. Left ventriculography. TECHNIQUE He was prepped and draped in the usual sterile techniques. Conscious sedation was performed using Versed and fentanyl. 1% lidocaine was used for local anesthesia. Using modified Seldinger technique, arterial access was obtained into the right radial artery with placement of a 6-Colombian arterial sheath. 3000 units of heparin, 300 mcg of nitroglycerin, and 2.5 mg of verapamil were given through the arterial sheath. LEFT VENTRICULOGRAPHY: Left ventriculography in single-plane RODRIGUEZ shallow projection showed dilated left ventricle with ejection fraction of about 30-35% with global hypokinesia with no gradient across the aortic valve. There was no mitral regurgitation. EDP was about 18. CORONARY ANGIOGRAPHY: Left main showed about 30% stenosis and trifurcated into left anterior descending, left circumflex and ramus intermedius. Left anterior descending artery was a medium caliber vessel which wrapped around the apex. There was diffuse disease of LAD but no stenosis greater than 30%. First diagonal was a medium caliber vessel with a caudal branch of the diagonal showing 90% stenosis. This was about a 1.5 to 2 mm vessel. Left circumflex artery had minor irregularities with no significant lesions. First marginal was a small caliber vessel in the range of 2 mm diameter with 90% stenosis. Second marginal was free of significant lesions. Ramus intermedius was a medium caliber vessel with diffuse irregularities and disease but no stenosis greater than 30%. Right coronary artery was a wyfgrc-if-jzeeu caliber vessel which was dominant. Proximal RCA had an ectatic area. Remaining course of RCA was diffusely irregular with no significant lesions. The patient tolerated the procedure well with no complications. IMPRESSION 1. Small vessel coronary artery disease as described above. 2. LV dysfunction with ejection fraction of about 30 35%. PLAN Medical management. 03/07/18 11:48 03/07/18 11:48 Date of Exam: 03/03/18 Type of Exam(s): US noelle w/ doppler DATE OF PROCEDURE March 03, [address] Kathy Hermosillo The patient is a pleasant 62-year-old gentleman with CVA and was referred for further evaluation by transesophageal echocardiogram. Informed consent was obtained after explaining the procedure and the potential risks to the patient who agreed to proceed with the procedure. PROCEDURE 1. Transesophageal echocardiogram. Conscious sedation was performed using Versed and fentanyl. Cetacaine spray was used for pharyngeal anesthesia. Probe was advanced into the esophagus and stomach and images were obtained in multiple planes. Left atrial dimension is normal. Left ventricle end-diastolic dimension is normal. Left ventricle wall thickness is normal. LV systolic function is reduced with global hypokinesia with ejection fraction of about 30-35%. There is no thrombus in left atrium, left atrial appendage or left ventricle. Right atrium is normal. Right ventricle is normal. Mitral valve is morphologically normal with trace of mitral regurgitation. Aortic valve is a trileaflet structure with no stenosis or insufficiency. Tricuspid valve is morphologically normal with trace of tricuspid regurgitation. Pulmonary valve is morphologically normal. There is no pulmonary insufficiency. Agitated saline was injected which showed no evidence of cxrst-zu-yvtv shunt. Descending thoracic aorta shows mild atherosclerosis. IMPRESSION 1. No intracardiac thrombus or mass. 2. Global hypokinesia with ejection fraction of about 30-35%. 3. Trace of mitral regurgitation. 4. Trace of tricuspid regurgitation. 5. Mild atherosclerosis of the descending thoracic aorta. 6. No evidence of mmhfj-gd-fzzy shunt using agitated saline. 03/07/18 11:49 Date of Exam: 02/28/18 Ordering Provider: Jayshree Andino APRN Type of Exam(s): US carotid doppler BI Reason for Exam(s): stroke like symptoms EXAM: US carotid doppler BI LOCATION OF DICTATION: [place] HISTORY: stroke like symptoms COMPARISON: No prior studies available for comparison. TECHNIQUE: Multiple real-time grayscale sonographic images were obtained of the carotid arteries bilaterally with color flow and spectral analysis. Peak systolic velocities are measured in centimeters per second. FINDINGS: Velocities are as follows: RIGHT CAROTID SYSTEM: CCA: 75.7 cm/S Proximal ICA: 54.5 cm/S Mid ICA: 61.6 cm/S Distal ICA: 78.1 cm/S ECA: 68 cm/S Vertebral: 35.9 ICA/CCA ratio: 0.7 LEFT CAROTID SYSTEM: CCA: 68.6 cm/S Proximal ICA: 55.8 cm/S Mid ICA: 78.9 cm/S Distal ICA: 62.8 cm/S Vertebral: Antegrade ICA/CCA ratio: -1.2 IMPRESSION: No evidence of significant arteriosclerotic plaque or stenosis involving the right or left carotid arteries . 03/07/18 11:49 Date of Exam: 02/28/18 Ordering Provider: Jayshree Andino APRN Type of Exam(s): MR head/brain wo con Reason for Exam(s): right sided paresthesias EXAM: MR head/brain wo con LOCATION OF DICTATION: [place] HISTORY: right sided paresthesias COMPARISON: No prior studies available for comparison. TECHNIQUE: Multiplanar, multisequence, MR imaging of the head with and without contrast was acquired. FINDINGS: The ventricles are of normal size, shape, and contour for the patient's age. There are small nonspecific punctate areas of T2-weighted and T2 FLAIR weighted signal abnormality in the deep frontoparietal white matter that most likely represent small vessel ischemic disease. This is of a degree that is considered to be normal for the patient's age. There is a small focus of restricted diffusion overlying the region of the left thalamus compatible with acute/recent infarct. There is no evidence of an intracranial mass lesion, intracranial hemorrhage, or hydrocephalus. The visualized portions of the orbits, calvarium, paranasal sinuses, and skull base demonstrate no significant abnormality. IMPRESSION: 1. Small focus of restricted diffusion within the left thalamus compatible with acute/recent infarct. 2. Mild to moderate deep/subcortical white matter disease likely secondary to chronic small vessel ischemia. . EKG interpretations - EKG EKG results cardiology: sinus rhythm - Blocks, axis, hypertrophy, ST abn Repolarization changes or abnormalities: nonspecific abnormality, ST segment, and/or T wave Assessment and Plan - Assessment and Plan (1) Cardiomyopathy Problem details: Dilated non-ischemic Status: Acute (2) Ischemic cerebrovascular accident (CVA) Status: Acute (3) Diabetes mellitus type 2, uncontrolled, without complications Status: Chronic (4) Obesity (BMI 30-39.9) Status: Chronic (5) Essential (primary) hypertension Status: Chronic - Assessment and Plan CM:Dilated nonischemic - EF 30-35% - Increase Metoprolol Succinate to 50mg for tachycardia and CM - Life Vest at all times except bathing - Monitor telemetry Ischemic CVA: No thrombus on NOELLE - SR on telemetry Paresthesia HTN: suboptimal control - Continue Lisinopril 20mg daily - Continue to monitor DM II uncontrolled: - H1C 12.5 - per attending Obesity Thank you for allowing us to participate in the care of this patient. Hospital Course Summary Disclaimer: The visit summary below is not to be considered part of the above Progress Note. Hospital Course: Plan - 03/05/18: Agree with admission to IRU for continued strengthening and improvement in functional abilities. Encourage participation in therapies. Monitor closely for signs of worsening depression and mood changes. Dr. Londono to continue to follow regarding hypertension and tachycardia. Multiple medications changes made to home medications during acute inpatient hospitalization. Will continue as follows: * Lipitor 40mg QHS initiated. * Plavix 75mg daily initiated. * NovoLog 7 units with meals initiated. * Metoprolol tartrate 25mg BID initiated. * Lisinopril decreased to 20mg daily. * Lantus increased to 40 units QHS. * Lovenox SQ initiated for DVT prophylaxes. Monitor blood sugars closely. Patient received steroid injection to right should for pain on 03/04 which may increase blood sugars. Adjust insulins as indicated. Patient instructed to follow up with Dr. Chavez regarding elevated PTH and calcium 1-2 weeks following discharge from IRU. Patient instructed to follow up with Dr. Nice 1 week following discharge from IRU. Due to recent placement of LifeVest, patient is to limit activity until 03/07/18 with a lifting weight restriction of 10 pounds and no pushing/pulling x 1 week ( until 03/11/18) Upon discharge, patient's care will be returned to his PCP, Dr. Nice. <Frank Londono - Last Filed: 03/15/18 11:47> PFS Patient Stated Medical History Cerebrovascular Accident Yes Hypertension Yes Diabetes Mellitus Type 2 Yes Constipation No Hx Incontinence No Hx Kidney Stones Yes Clinic Medical History (Last Updated 03/05/18 @ 12:02 by FAREED Rene) Hyperlipidemia (Chronic Medical) GERD (gastroesophageal reflux disease) (Chronic Medical) Cardiomyopathy, dilated, nonischemic (Chronic Medical) Left ventricular hypertrophy and global hypokinesis with EF 35% - 02/2018. Hypertension (Chronic Medical) Ischemic stroke (Acute Medical) 02/26/18 - Left thalamic ischemic stroke with right-sided paresthesias and weakness Hyperparathyroidism, primary (Chronic Medical ~07/08/16) Hypercalcemia (Chronic Medical ~01/2014) Diabetic peripheral neuropathy associated with type 2 diabetes mellitus ( Chronic Medical) Obesity (BMI 30-39.9) (Chronic Medical) Exam Vital signs: Temperature 98.0 F 03/12/18 08:00 Pulse Rate 67 03/12/18 08:00 Respiratory Rate 16 03/12/18 08:00 Blood Pressure 149/96 H 03/12/18 08:00 Pulse Oximetry 95 03/12/18 08:00 Results 03/07/18 05:00 03/07/18 05:00 Assessment and Plan - Attestation Attestation Narrative: 03/15/18 11:47 Recommendation After examining the patient I agree with the above assessment. I am involved in the formulation of the patient's plan of care. - Assessment and Plan (1) Obesity (BMI 30-39.9) Status: Chronic (2) Diabetes mellitus type 2, uncontrolled, without complications Status: Deleted (3) Cardiomyopathy Problem details: Dilated non-ischemic Status: Acute (4) Ischemic cerebrovascular accident (CVA) Status: Acute (5) Essential (primary) hypertension Status: Chronic Hospital Course Summary Disclaimer: The visit summary below is not to be considered part of the above Progress Note.
[2018-03-07] MEDS: DOCUSATE SODIUM 100 MG CAPSULE PO SCH (12:09)
--- NOTE | 2018-03-07 12:54 | Consultation ---
DATE OF CONSULTATION 03/07/[address] Flores The patient's chief complaint is right-sided numbness and weakness. HISTORY OF PRESENT ILLNESS The patient is a 62-year-old male with history of hypertension, hyperlipidemia and diabetes mellitus who recently had a left thalamic stroke. The patient was admitted to [facility]. His medical conditions were poorly controlled with medication due to compliance problem. The patient was started on aspirin and Plavix for stroke prevention. His blood pressure, diabetes and hyperlipidemia have been treated with medications. The patient continues to have right-sided numbness, weakness and coordination problem. He was admitted to the rehab unit at [facility] to improve his mobility and strength. He has had physical and occupational therapy with good participation. He is still having problem with his balance, coordination and sensory deficit on the right. He has had no headache and no bleeding problem while on the Plavix and aspirin. PHYSICAL EXAMINATION The patient was awake, alert, oriented x 3. Pupils were round, reactive and equal. Extraocular muscles were intact. Visual field was full. Speech was fluent. Sensory examination was diminished for light touch and pinprick on the right side compared to the left and in the lower legs and feet. Deep tendon reflexes were 2-/4. Plantar reflexes were equivocal bilaterally. The motor examination was 4 to 4+ on the right and 5-/5 on the left. Coordination for [id number]-[id number] was dysmetric on the right and slow on the left. Gait: The patient is having some wide gait. He tends to throw his right leg forward upon walking. ASSESSMENT Acute to subacute left thalamic ischemic stroke. This has been associated with right-sided numbness, weakness and coordination problem. PLAN 1. Continue aspirin and Plavix for stroke prevention for at least 3 months. The patient can be switched to Plavix alone afterwards if remaining stable. 2. Continue optimizing treatment for diabetes, hypertension and hyperlipidemia. 3. Continue physical and occupational therapy to improve the patient's mobility , ambulation and motor strength. 4. Monitor for any signs of bleed or headaches. [facility]ITALCindy
[2018-03-07] MEDS: INSULIN GLARGINE 100unit/ml INJECTION SQ SCH (20:27)
[2018-03-07] MEDS: ATORVASTATIN 40 MG TABLET PO SCH (20:27)
[2018-03-07] MEDS: APAP/DIPHENHYDRAMINE 500 MG/25 MG TABLET PO PRN (23:07)
[2018-03-08] MEDS: PANTOPRAZOLE 20 MG TABLET PO SCH (05:51)
[2018-03-08] MEDS: ASPIRIN *EC* 81 MG TABLET PO SCH (08:20)
[2018-03-08] MEDS: DOCUSATE SODIUM 100 MG CAPSULE PO SCH (08:20)
[2018-03-08] MEDS: SENNA + DOCUSATE TABLET PO SCH (08:20)
[2018-03-08] MEDS: CLOPIDOGREL 75 MG TABLET PO SCH (08:20)
[2018-03-08] MEDS: LISINOPRIL 20 MG TABLET PO SCH (08:20)
[2018-03-08] MEDS: POLYETHYL GLYCOL 3350 17gm PACKET PO SCH (08:20)
[2018-03-08] MEDS: INSULIN ASPART 100unit/ml INJECTION SQ SCH ×3 (08:20→17:44)
[2018-03-08] MEDS: ENOXAPARIN 40 MG/0.4 ML INJECTION SQ SCH (08:21)
[2018-03-08] MEDS: SALINE FLUSH 10ml SYRINGE IVF PRN ×2 (08:25→17:45)
--- NOTE | 2018-03-08 10:06 | IRU Progress Note ---
- Subjective/Serverity of Illness Date: 03/08/18 Naun was interviewed and examined in his room on inpatient rehabilitation. He states that his confidence is improving. He did not want to bear much weight on the right side because he could not sense where it was. Yesterday he made some gains with regard to increased confidence in bearing weight on the right side even though he cannot feel it very well. He reports his appetite is adequate. Denies any nausea or vomiting or chest pain. He has not noted any palpitations. He continues to wear the life vest. Review of telemetry indicates normal sinus mechanism with occasional PVC and occasional PAC. From a therapy standpoint he is minimal assist to standby assist for many ADLs. He is limited by his lack of sensation on the right side, reduced endurance, coordination and balance. For physical therapy, he was able to walk 155 feet with a front-wheeled walker at contact guard assist level. He transfers with minimum assistance. He is limited by endurance and balance as well as lack of sensation on the right side. Medically he seems stable. He has been reevaluated by Dr. Arriaza and Dr. Londono. His blood pressures are much improved control. Blood sugars are also doing well. To my knowledge he has not been seen by diabetic education and we will initiate that. Exam Vital Signs: Temperature 97.6 F 03/08/18 07:04 Pulse Rate 70 03/08/18 07:04 Respiratory Rate 16 03/08/18 07:04 Blood Pressure 142/92 H 03/08/18 07:04 Pulse Oximetry 98 03/08/18 07:04 Height/Weight/BMI: Height 1.78 m Weight 112 kg Body Mass Index 35.4 - Constitutional Present: no acute distress, well nourished, well developed, cooperative - Routine HEENT Exam Head: Present: normocephalic Eye: Present: EOMI. Absent: scleral injection ENT: Present: mucous membranes moist, oropharynx clear, dentition normal - Routine Neck Exam Present: supple - Routine Respiratory Exam Present: CTA bilaterally. Absent: wheezes - Routine Cardiovascular Exam Present: RRR, S1, S2. Absent: murmur - Routine Abdominal Exam Present: soft, normoactive bowel sounds, non distended. Absent: tenderness - Routine Extremities Exam Present: normal capillary refill - Routine Skin Exam Present: dry, warm - Routine Neurological Exam Present: alert, oriented X3, CN II-XII intact, sensory deficit (right-sided abnormal sensation with numbness and tingling.), motor deficit (weakness on the right upper and lower extremity noted. Some "clumsiness" and lack of control/ coordination on the right side.). Absent: normal speech, tremors - Routine Psychiatric Exam Present: normal affect, normal thought process, cooperative, good insight, good judgment Results IRU - Labs Labs: Have reviewed labs, other providers notes and telemetry. IRU A/P (1) Ischemic cerebrovascular accident (CVA) Current visit: No Status: Acute Continues to struggle with reduced sensation and clumsiness on the right side with weakness. Has gained some confidence in bearing weight on the right side. Progressing with therapy. (2) Essential (primary) hypertension Current visit: Yes Status: Chronic His blood pressures are much more well controlled. (3) Diabetes mellitus type 2, uncontrolled, without complications Qualifiers: Diabetes mellitus mcfp insulin use: with mcfp use Qualified Code( s): E11.65 - Type 2 diabetes mellitus with hyperglycemia; Z79.4 - emt intermediate ( current) use of insulin Current visit: Yes Status: Chronic His blood sugars are doing better. We will initiate diabetic education. (4) Obesity (BMI 30-39.9) Current visit: Yes Status: Chronic (5) Cardiomyopathy, dilated, nonischemic Current visit: Yes Status: Acute Continues to wear the LifeVest. Review of telemetry indicates predominantly normal sinus mechanism with only rare PVC and PAC. (6) Slow transit constipation Current visit: Yes Status: Acute DVT Prophylaxis: SCD's, Lovenox Resuscitation Status: Full Code - Course Hospital Course: Ganesh Flores MD: 03/07/18 10:21 Patient very cooperative with therapy. Sluggish stools. Right-sided numbness and weakness persist. Improving with therapy. 03/08/18 10:08 Continues to progress with therapy. Increased confidence with ambulation. Sugars and blood pressure more well controlled. - Interventions to Obtain Goals PT Treatment Plan: Balance/Proprioception, Functional Activities, Gait Training , Patient/Family Education, Therapeutic Exercise OT Treatment Plan: ADL (Basic Care), Balance Training, IADL, Pt./Family Education, Ther. Exercise for ADL Goals Progress/Modifications: He is progressing with therapy. We will have a multidisciplinary team conference today with the patient and his to give further feedback from a multidisciplinary perspective. He continues to wear his LifeVest. Review of telemetry strips indicates stable rhythm at present. He is tolerating therapy adequately with regard to his nonischemic cardiomyopathy with ejection fraction 30-35%. His blood sugars and blood pressures are more well controlled. We will ask the critical care educator to work with him regarding insulin therapy, monitoring etc.
[2018-03-08] MEDS: INSULIN ASPART 100unit/ml INJECTION SQ PRN (11:13)
--- NOTE | 2018-03-08 13:44 | IRU Team Meeting ---
IRU Team Meeting - Nursing Bladder Assistive Devices Utilized:: Urinal, Absorbent Pad Bladder Management Level of Assist: Modified Independent Bladder Frequency of Accidents: No accidents Bowel Assistive Devices Utilized:: Medication Bowel Management Level of Assist: Modified Independent Bowel Frequency of Accidents: No accidents Vital Signs: Vital Signs - 24 hr 03/07/18 16:00 03/07/18 23:19 03/08/18 00:00 Temperature 97.6 F 98.2 F Pulse Rate 86 81 75 Respiratory Rate 16 20 Blood Pressure 139/94 H 126/82 Pulse Oximetry 96 96 03/08/18 07:04 03/08/18 08:24 Temperature 97.6 F Pulse Rate 70 76 Respiratory Rate 16 Blood Pressure 142/92 H Pulse Oximetry 98 Current Medications: Acetaminophen (Tylenol) 650 mg PO Q6H PRN PRN Reason: Fever Acetaminophen/Diphenhydramine HCl (Tylenol Pm) 1 tab PO HS PRN PRN Reason: Sleep Last Admin: 03/07/18 23:07 Dose: 1 tab Hydrocodone Bitart/Acetaminophen ([place] 5/325) 1 - 2 tab PO Q5H PRN PRN Reason: Pain Last Admin: 03/05/18 11:10 Dose: 2 tab Al Hydroxide/Mg Hydroxide (Maalox Plus) 30 ml PO Q3H PRN PRN Reason: Indigestion Aspirin (Ecotrin) 81 mg PO DAILY [facility] Last Admin: 03/08/18 08:20 Dose: 81 mg Atorvastatin Calcium (Lipitor) 40 mg PO HS [facility] Last Admin: 03/07/18 20:27 Dose: 40 mg Bisacodyl (Dulcolax) 10 mg RECTALLY DAILY PRN PRN Reason: Constipation Clopidogrel Bisulfate (Plavix) 75 mg PO DAILY [facility] Last Admin: 03/08/18 08:20 Dose: 75 mg Docusate Sodium (Colace) 100 mg PO DAILY [facility] Last Admin: 03/08/18 08:20 Dose: 100 mg Enoxaparin Sodium (Lovenox) 40 mg SQ DAILY [facility] Last Admin: 03/08/18 08:21 Dose: 40 mg Insulin Aspart (Novolog) 2 - 8 unit SQ SS PRN; Protocol PRN Reason: Hyperglycemia Last Admin: 03/08/18 11:13 Dose: 2 unit Insulin Aspart (Novolog) 7 unit SQ WM [facility] Last Admin: 03/08/18 12:34 Dose: 7 unit Insulin Glargine (Lantus) 40 unit SQ HS [facility] Last Admin: 03/07/18 20:27 Dose: 40 unit Lisinopril (Prinivil) 20 mg PO DAILY [facility] Last Admin: 03/08/18 08:20 Dose: 20 mg Lorazepam (Ativan) 0.5 - 1 mg PO Q4H PRN PRN Reason: Anxiety Magnesium Hydroxide (Mom) 30 ml PO DAILY PRN PRN Reason: Constipation Metoprolol Succinate (Toprol Xl) 50 mg PO DAILY [facility] Last Admin: 03/08/18 08:21 Dose: 50 mg Nitroglycerin (Nitrostat) 0.4 mg SL Q5M PRN PRN Reason: Angina Pantoprazole Sodium (Protonix) 20 mg PO ACB [facility] Last Admin: 03/08/18 05:51 Dose: 20 mg Polyethylene Glycol (Miralax) 17 gm PO DAILY [facility] Last Admin: 03/08/18 08:20 Dose: 17 gm Senna/Docusate Sodium (Senna Plus Tablet) 1 tab PO DAILY [facility] Last Admin: 03/08/18 08:20 Dose: 1 tab Sodium Chloride (Iv Flush) 10 - 80 ml IVF PRN PRN PRN Reason: Flushing Last Admin: 03/08/18 08:25 Dose: 10 ml Zolpidem Tartrate (Ambien) 10 mg PO HS PRN PRN Reason: Insomnia Current Medical Issues: Nonischemic cardiomyopathy with ejection fraction 30-35%, diabetes mellitus type 2, not controlled, benign essential hypertension, recent left thalamic stroke Comments: I certify that I personally led the interdisciplinary team meeting and agree with comments, barriers and goals indicated. Team meeting was held in the patient's room with the patient and the following family members present: patient's spouse Mr. Mendez is very cooperative and is making improvements. Telemetry reveals normal sinus mechanism with occasional PVC and occasional PAC. No malignant dysrhythmias have been identified. He continues to wear his LifeVest except when bathing. He denies any chest pain and denies shortness of breath. He is tolerating therapy well. His blood sugars have come under improved control and his blood pressures are improved as well. - Dietary He was seen by the dietitian while on acute care. Educational efforts will be reinforced. In addition he will see the historic sites registrar again here on rehabilitation as he did on acute. - Physical Therapy Bed, Chair, Wheelchair Transfer Assist: Stand By Assist/Supervision, 1 Person Assist Ambulation Ability: Contact Guard Assistance, 1 Person Assist Ambulation Distance: 353 Wheelchair Propulsion Ability: Total Assistance Wheelchair Propulsion Distance: 30 Stair Climbing Ability: Total Assistance, 1 Person Assist Number of Steps Climbed: 2 Car Transfer Ability: Stand By Assist/Supervision, 1 Person Assist Comments: He is able to ambulate over 350 feet with contact guard assistance. He is demonstrating improved ambulatory tolerance. He is able to ambulate 45 feet today on an uneven surface. He does have some fatigue. He reports increased confidence with use of the right side. - Occupational Therapy Eating Ability: Independent Grooming Ability: Contact Guard Assistance Bathing Ability: Contact Guard Assistance Upper Body Dressing Ability: Stand By Assist/Supervision Lower Body Dressing Ability: Contact Guard Assistance Tub Transfer Assist: Patient Unsafe/Unable Toileting Assist: Contact Guard Assistance Toilet Transfer Assist: Contact Guard Assistance Comments: He is demonstrating improvements in ADLs and safety awareness. He does demonstrate some increased purposeful movements with the right upper extremity. - Goals Physical Therapy Goals: 03/08/18: 1.) Modified [place] with ambulation. 2. ) Modified [place] with transfers. 3.) 2 stairs with stand-by assist. Occupational Therapy Goals: OT goals 03/08/18: 1.) Lower body dressing with modified independence. 2.) Managing Life Vest with modified independence. 3.) Light meal preparation with modified independence. - Barriers to Discharge Barriers to Attaining Goals: Balance (proprioceptive and balance training is offered.), Medical Limitation (reduced coordination. Patient is working with proprioceptive and fine motor movement activities.) - Care Plan Anticipated Length of Stay (days): 4 Anticipated DC Destination: Home, Self Care I have led this team conference and agree with the plan. Interventions/Goals: Patient appears to be medically stable. He is improving with regard to ADLs and physical therapy as well. It is anticipated the patient will be able to safely transition to his home environment on Wednesday after therapy.
[2018-03-08] MEDS: ATORVASTATIN 40 MG TABLET PO SCH (20:50)
[2018-03-08] MEDS: INSULIN GLARGINE 100unit/ml INJECTION SQ SCH (20:50)
[2018-03-08] MEDS: ZOLPIDEM 10 MG TABLET PO PRN (23:23)
[2018-03-09] MEDS: PANTOPRAZOLE 20 MG TABLET PO SCH (06:07)
[2018-03-09] MEDS: SENNA + DOCUSATE TABLET PO SCH (08:25)
[2018-03-09] MEDS: ENOXAPARIN 40 MG/0.4 ML INJECTION SQ SCH (08:25)
[2018-03-09] MEDS: LISINOPRIL 20 MG TABLET PO SCH (08:25)
[2018-03-09] MEDS: CLOPIDOGREL 75 MG TABLET PO SCH (08:25)
[2018-03-09] MEDS: DOCUSATE SODIUM 100 MG CAPSULE PO SCH (08:25)
[2018-03-09] MEDS: ASPIRIN *EC* 81 MG TABLET PO SCH (08:25)
[2018-03-09] MEDS: SALINE FLUSH 10ml SYRINGE IVF PRN (08:26)
[2018-03-09] MEDS: INSULIN ASPART 100unit/ml INJECTION SQ SCH ×3 (08:26→17:28)
[2018-03-09] MEDS: POLYETHYL GLYCOL 3350 17gm PACKET PO SCH (08:26)
--- NOTE | 2018-03-09 13:30 | IRU Progress Note ---
- Subjective/Serverity of Illness Date: 03/09/18 Pt was interviewed & examined in his room on IRU w/ his present. He feels like he is doing quite well overall. He is still having difficulty w/ weight bearing on his right side d/t lack of sensation, but overall feels like he has made significant improvement in the past few days. He continues to wear the life vest & states it is comfortable for him. Review of tele shows NSR w/ occ PACs. From a therapy standpoint he is 1 person standby assist for most ADLs, limited by lack of sensation on the right side, endurance, coordination & balance. Medically he is doing well. BPs are not entirely controlled, but are much improved. DM education saw him yesterday. ROS: GEN: no concerns, energy level ok, tired after PT CV: no CP/pressure, no palpitations RESP: no cough, SOA GI: no abd pain, no constip/diarrhea Neuro: still w/ numbness, but feels like he is getting better at working around it. Exam Vital Signs: Temperature 97.5 F 03/09/18 07:41 Pulse Rate 79 03/09/18 08:00 Respiratory Rate 16 03/09/18 07:41 Blood Pressure 142/88 H 03/09/18 07:41 Pulse Oximetry 94 03/09/18 07:41 Telemetry Rhythm: Sinus Rhythm Height/Weight/BMI: Height 1.78 m Weight 112 kg Body Mass Index 35.4 - Constitutional Present: no acute distress, well nourished, well developed - Routine HEENT Exam Head: Present: normocephalic, atraumatic Eye: Present: EOMI. Absent: conjunctival icterus, scleral injection ENT: Present: mucous membranes moist, oropharynx clear - Routine Neck Exam Present: supple, full ROM. Absent: lymphadenopathy, tenderness - Routine Chest/Breast/Axilla Exam Chest wall: Absent: tenderness - Routine Respiratory Exam Present: CTA bilaterally. Absent: wheezes - Routine Cardiovascular Exam Present: RRR. Absent: murmur - Routine Abdominal Exam Present: soft, normoactive bowel sounds, non distended. Absent: tenderness - Routine Extremities Exam Present: no edema, normal capillary refill. Absent: cyanosis, clubbing - Routine Skin Exam Present: intact - Routine Neurological Exam Present: alert, oriented X3, CN II-XII intact - Routine Psychiatric Exam Present: normal affect Results IRU - Labs Labs: Laboratory Tests 03/09/18 03/09/18 06:10 10:06 Glucometer 99 145 - Impressions BS stable IRU A/P (1) Ischemic cerebrovascular accident (CVA) Current visit: No Status: Acute Continues to struggle w/ reduced sensation & incoordination right side, but improving & progressing w/ therapy. (2) Essential (primary) hypertension Current visit: Yes Status: Chronic BPs better, continue to monitor. Appreciate assistance of hospitalists in this regard. (3) Diabetes mellitus type 2, uncontrolled, without complications Current visit: Yes Status: Acute BS much improved. Appreciate assistance of hospitalists. (4) Obesity (BMI 30-39.9) Current visit: No Status: Chronic (5) Cardiomyopathy Problem details: Dilated non-ischemic Current visit: Yes Status: Acute Telemetry from [facility] continues to show sinus rhythm w/ occasional PACs. (6) Slow transit constipation Problem details: Improved Current visit: Yes Status: Acute DVT Prophylaxis: SCD's, Lovenox Resuscitation Status: Full Code - Course Hospital Course: Ganesh Flores MD: 03/07/18 10:21 Patient very cooperative with therapy. Sluggish stools. Right-sided numbness and weakness persist. Improving with therapy. 03/08/18 10:08 Continues to progress with therapy. Increased confidence with ambulation. Sugars and blood pressure more well controlled. 03/09/18 13:44 Pt making good progress w/ therapy in confidence & understanding of his abilities. BS & BP improving control. Continue current cares. - Interventions to Obtain Goals PT Treatment Plan: Balance/Proprioception, Functional Activities, Gait Training , Patient/Family Education, Therapeutic Exercise OT Treatment Plan: ADL (Basic Care), Balance Training, IADL, Pt./Family Education, Ther. Exercise for ADL
--- NOTE | 2018-03-09 18:16 | Progress Note ---
Progress Note: Patient is seen today, however, no examination was performed. We did discuss all discharge medications as patient will have numerous new medications. He is requesting a list of meds early to get an idea for pricing. We did discuss plans for diabetes management. Plan will be to restart metformin this evening and continue with Lantus 40 units. Mealtime insulin is discontinued now. We will see how the next 2 days ago prior to discharge. The hope would be to discontinue mealtime insulin at time of discharge.
[2018-03-09] MEDS: METFORMIN 500 MG TABLET PO SCH (19:43)
[2018-03-09] MEDS: ATORVASTATIN 40 MG TABLET PO SCH (21:22)
[2018-03-09] MEDS: INSULIN GLARGINE 100unit/ml INJECTION SQ SCH (21:22)
[2018-03-10] MEDS: APAP/DIPHENHYDRAMINE 500 MG/25 MG TABLET PO PRN (00:05)
[2018-03-10] MEDS: PANTOPRAZOLE 20 MG TABLET PO SCH (06:35)
[2018-03-10] MEDS: LISINOPRIL 20 MG TABLET PO SCH (08:02)
[2018-03-10] MEDS: ENOXAPARIN 40 MG/0.4 ML INJECTION SQ SCH (08:02)
[2018-03-10] MEDS: CLOPIDOGREL 75 MG TABLET PO SCH (08:02)
[2018-03-10] MEDS: POLYETHYL GLYCOL 3350 17gm PACKET PO SCH (08:02)
[2018-03-10] MEDS: ASPIRIN *EC* 81 MG TABLET PO SCH (08:02)
[2018-03-10] MEDS: METFORMIN 500 MG TABLET PO SCH ×2 (08:03→17:13)
[2018-03-10] MEDS: SENNA + DOCUSATE TABLET PO SCH (08:03)
[2018-03-10] MEDS: DOCUSATE SODIUM 100 MG CAPSULE PO SCH (08:03)
[2018-03-10] MEDS: HYDROCODONE/APAP 5mg/325mg TABLET PO PRN ×2 (12:30→21:29)
[2018-03-10] MEDS: INSULIN ASPART 100unit/ml INJECTION SQ PRN (12:31)
[2018-03-10] MEDS: SALINE FLUSH 10ml SYRINGE IVF PRN ×2 (17:13→21:30)
[2018-03-10] MEDS: INSULIN GLARGINE 100unit/ml INJECTION SQ SCH (21:17)
[2018-03-10] MEDS: ATORVASTATIN 40 MG TABLET PO SCH (21:17)
[2018-03-11] MEDS: PANTOPRAZOLE 20 MG TABLET PO SCH (06:04)
[2018-03-11 07:48] VITALS: RESP 16
[2018-03-11] MEDS: CLOPIDOGREL 75 MG TABLET PO SCH (08:03)
[2018-03-11] MEDS: DOCUSATE SODIUM 100 MG CAPSULE PO SCH (08:03)
[2018-03-11] MEDS: LISINOPRIL 20 MG TABLET PO SCH (08:03)
[2018-03-11] MEDS: METFORMIN 500 MG TABLET PO SCH ×2 (08:03→17:30)
[2018-03-11] MEDS: SENNA + DOCUSATE TABLET PO SCH (08:03)
[2018-03-11] MEDS: ENOXAPARIN 40 MG/0.4 ML INJECTION SQ SCH (08:04)
[2018-03-11] MEDS: POLYETHYL GLYCOL 3350 17gm PACKET PO SCH (08:04)
[2018-03-11] MEDS: ASPIRIN *EC* 81 MG TABLET PO SCH (08:04)
[2018-03-11] MEDS: SALINE FLUSH 10ml SYRINGE IVF PRN (08:04)
--- NOTE | 2018-03-11 09:15 | Discharge Summary ---
<Barry Franklin R - Last Filed: 03/11/18 08:53> Discharge Information Date of admission: 03/04/18 15:10 Attending Physician: Ganesh Flores MD Primary care physician: Kalen Nice MD Consults: 03/04/18 15:38 Case Management Consult [Case Management Consult] [CONS] Routine Reason For Exam: overnight oximetry Defibrillator Vest [Wearable Cardiac Device] [CONS] Routine Estimated Length of Need: 4 months (A new order will be required to extend use) REASON FOR DEFIBRILLATOR VEST: Cardiac Arrest due to VF or Sustained VT: No Familial or inherited condition with SCA risk:: No GA with an EF of < or = to 35%: No DCM (including NICM) with an EF of < or = to 35%: Yes DEFIBRILLATOR VEST SETTINGS: VT Heart Rate Threshold: 150 BPM VF Heart Rate Threshold: 200 BPM TREATMENT ENERGY (JOULES) 1st: 150 J 2nd: 150 J 3rd: 150 J 4th: 150 J 5th: 150 J Physician Consult [CONS] Routine Consulting Provider: Flora Arriaza Reason For Exam: cva Ordering Provider has Notified Supervising Floorperson: Yes Physician Consult [CONS] Routine Consulting Provider: Frank Londono Reason For Exam: global hypokinesis and tachycardia Ordering Provider has Notified Supervising Floorperson: Yes Comment: i will notify 03/04/18 16:11 Physician Consult [CONS] Routine Consulting Provider: Kathy Hermosillo Reason For Exam: Medical management Ordering Provider has Notified Supervising Floorperson: No 03/08/18 Company Marker Consult [Inpatient Diabetic Consult] [CONS] Routine Diabetic Diagnosis: E11.65 Uncontrolled T2 DM Diabetic Training: Medications Monitoring Diabetes Disease Process - Discharge Diagnosis (1) Cardiomyopathy Status: Acute (2) Ischemic cerebrovascular accident (CVA) Status: Acute (3) Obesity (BMI 30-39.9) Status: Chronic (4) Essential (primary) hypertension Status: Chronic (5) Slow transit constipation Status: Acute (6) Diabetes mellitus type 2, uncontrolled, without complications Status: Acute - Laboratory Labs: 03/07/18 05:00 03/07/18 05:00 History of Present Illness HPI: Mr. Mendez presented to ED on 02/27/2018 with R sided numbness and tingling. Pt. did admit to being non-compliant with diabetes and HTN medications for some time. He did not receive TPA. He was admitted to hospitalist service. MRI showed a left thalamic ischemic stroke with right sided weakness and numbness. Cardiology was consulted due to chronic uncontrolled HTN. On 03/03/18 heart catheterization was performed. After further evaluation he was diagnosed with nonischemic dilated cardiomyopathy. Dr. Londono placed him in a LifeVest. His diabetes is poorly controlled- HgA1c was 12.5%. He was admitted to IRU on with reduced sensation involving the right face, right upper and lower extremities with subsequent inability to control movement in these areas. His speech is fluent and no difficulty with dysphagia. Prior to this incident he was independent of all ADLs. Pt. lives at home with his . He plans to follow -up Dr. Nice regarding HTN and DM. Hospital Course This is a general summary of the patient's hospital course. For more details refer to the complete medical record. Hospital course: Plan - 03/05/18: Agree with admission to IRU for continued strengthening and improvement in functional abilities. Encourage participation in therapies. Monitor closely for signs of worsening depression and mood changes. Dr. Londono to continue to follow regarding hypertension and tachycardia. Multiple medications changes made to home medications during acute inpatient hospitalization. Will continue as follows: * Lipitor 40mg QHS initiated. * Plavix 75mg daily initiated. * NovoLog 7 units with meals initiated. * Metoprolol tartrate 25mg BID initiated. * Lisinopril decreased to 20mg daily. * Lantus increased to 40 units QHS. * Lovenox SQ initiated for DVT prophylaxes. Monitor blood sugars closely. Patient received steroid injection to right should for pain on 03/04 which may increase blood sugars. Adjust insulins as indicated. Patient instructed to follow up with Dr. Chavez regarding elevated PTH and calcium 1-2 weeks following discharge from IRU. Patient instructed to follow up with Dr. Nice 1 week following discharge from IRU. Due to recent placement of LifeVest, patient is to limit activity until 03/07/18 with a lifting weight restriction of 10 pounds and no pushing/pulling x 1 week ( until 03/11/18) Upon discharge, patient's care will be returned to his PCP, Dr. Nice. Resuscitation Status: Full Code Discharge Plan - Med Rec/Dispo Referrals/Follow Up: Eliecer Chavez MD [Physician] - 2 Weeks (Eliecer Chavez MD [Physician] - regarding elevated PTH and calcium 1-2 weeks following discharge from IRU. ) Kalen Nice MD [Primary Care Provider] - 2 Weeks Prescriptions: New Atorvastatin [Lipitor] 40 mg PO HS #30 tab Insulin Glargine,Hum.rec.anlog [Lantus] 40 unit SQ HS #1 vial Lisinopril [Prinivil] 20 mg PO DAILY #30 tab Metoprolol Succinate (XL) [Toprol Xl] 50 mg PO DAILY #30 tab Pantoprazole Sodium [Protonix] 20 mg PO ACB #30 tablet. Senjuana + Docusate [Senna Plus Tablet] 1 tab PO DAILY tab Zolpidem [Ambien] 10 mg PO HS PRN #10 tab PRN Reason: Insomnia Aspirin *EC* [Ecotrin] 81 mg PO DAILY tab Clopidogrel [Plavix] 75 mg PO DAILY #30 tab PEG 3350 17gm PACKET [Miralax] 17 gm PO DAILY packet Metformin [Glucophage] 500 mg PO BIDWM #60 tab Continue Metformin XR [Glucophage Xr] 500 mg PO BID Discontinued Lisinopril [Prinivil] 40 mg PO DAILY Insulin Glargine [Lantus] 35 unit SQ HS - Disposition 01 Discharged Home, Self-Care - Dismissal Complete Discharge Instructions are:: Incomplete <Nichole Buitrago - Last Filed: 03/11/18 15:00> Discharge Information Date of admission: 03/04/18 15:10 Attending Physician: Ganesh Flores MD Primary care physician: Kalen Nice MD Consults: 03/04/18 15:38 Case Management Consult [Case Management Consult] [CONS] Routine Reason For Exam: overnight oximetry Defibrillator Vest [Wearable Cardiac Device] [CONS] Routine Estimated Length of Need: 4 months (A new order will be required to extend use) REASON FOR DEFIBRILLATOR VEST: Cardiac Arrest due to VF or Sustained VT: No Familial or inherited condition with SCA risk:: No GA with an EF of < or = to 35%: No DCM (including NICM) with an EF of < or = to 35%: Yes DEFIBRILLATOR VEST SETTINGS: VT Heart Rate Threshold: 150 BPM VF Heart Rate Threshold: 200 BPM TREATMENT ENERGY (JOULES) 1st: 150 J 2nd: 150 J 3rd: 150 J 4th: 150 J 5th: 150 J Physician Consult [CONS] Routine Consulting Provider: Flora Arriaza Reason For Exam: cva Ordering Provider has Notified Supervising Floorperson: Yes Physician Consult [CONS] Routine Consulting Provider: Frank Londono Reason For Exam: global hypokinesis and tachycardia Ordering Provider has Notified Supervising Floorperson: Yes Comment: i will notify 03/04/18 16:11 Physician Consult [CONS] Routine Consulting Provider: Kathy Hermosillo Reason For Exam: Medical management Ordering Provider has Notified Supervising Floorperson: No 03/08/18 Company Marker Consult [Inpatient Diabetic Consult] [CONS] Routine Diabetic Diagnosis: E11.65 Uncontrolled T2 DM Diabetic Training: Medications Monitoring Diabetes Disease Process - Discharge Diagnosis (1) Ischemic cerebrovascular accident (CVA) Status: Acute (2) Essential (primary) hypertension Status: Chronic (3) Diabetes mellitus type 2, uncontrolled, without complications Status: Acute (4) Obesity (BMI 30-39.9) Status: Chronic (5) Cardiomyopathy Status: Acute (6) Slow transit constipation Status: Acute - Laboratory Labs: 03/07/18 05:00 03/07/18 05:00 Hospital Course This is a general summary of the patient's hospital course. For more details refer to the complete medical record. Hospital course: Pt examined and evaluated personally by me. Documentation by Ramin Franklin APRN reviewed and I am in agreement. Pt to dismiss to home tomorrow after therapies completed. Encouraged patient and his to contact us or Dr. Nice's office if they get home & are feeling like they are needing more assistance after all and would like to get home health put in place, even for a short time. They state understanding, but are adamant that they feel comfortable w/ taking him to OP therapy. Will have him f/u w/ Dr. Nice and Dr. Londono as well as Dr. Chavez within 2 weeks. Time spent with patient: discharge greater than 30 minutes
--- NOTE | 2018-03-11 14:42 | Progress Note ---
- Date 03/11/18 Subjective: Naun has seen gradual improvement in right arm/leg strength and fine motor coordination. He has difficulty controlling a pen with his right hand but it's getting better. He still has some tingling to the right side of his face but it' s not as pronounced. He denies any new sx such as chest pain, palpitations, SOA , abdominal pain, n/v. He is planning on discharge home tomorrow. Objective Vital signs: Temperature 98.4 F 03/11/18 07:47 Pulse Rate 114 H 03/11/18 08:19 Respiratory Rate 16 03/11/18 07:47 Blood Pressure 152/105 H 03/11/18 07:47 Pulse Oximetry 95 03/11/18 07:47 Height/Weight/BMI: Height 1.78 m Weight 111.4 kg Body Mass Index 35.4 - Constitutional Present: no acute distress, well nourished, well developed - Routine HEENT Exam Head: Present: normocephalic Eye: Present: PERRL. Absent: conjunctival icterus, scleral injection - Routine Respiratory Exam Present: CTA bilaterally - Routine Cardiovascular Exam Present: RRR, S1, S2 - Routine Abdominal Exam Present: soft, normoactive bowel sounds, non distended, non tender - Routine Extremities Exam Present: no edema - Routine Skin Exam Present: intact, dry, warm - Routine Neurological Exam Present: alert, oriented X3, sensory deficit (tingling to right side of face), motor deficit (weakness to right arm/leg - improved from last assessment) - Routine Psychiatric Exam Present: normal affect, normal thought process, cooperative Results - Labs CBC & Chem 7: 03/07/18 05:00 03/07/18 05:00 Assessment and Plan Assessment and Plan: Assessment Left thalamic ischemic stroke with right-sided paresthesias and weakness - 2017 Hypertension, liable Sinus tachycardia with placement of LifeVest on 03/04/18 Uncontrolled diabetes with peripheral neuropathy. Hemoglobin A1c = 12.5% Obesity with BMI of >35 Global hypokinesis on echocardiogram with ejection fraction of 35% - 02/2018. Cardiomyopathy with left ventricular hypertrophy Mild Hypercalcemia (10.5) with elevated PTH of 138.2 GERD Hyperlipidemia Plan Tele stable - sinus with PAC - tele & IV discontinued Slightly tachy today - alerted Maribeth Cast APRN with Dr. Londono. BP labile but overall improved. Planning on discharge tomorrow - meds already arranged for outpatient use. BGM under good control on Lantus and Metformin. Follow up with Dr. Chavez regarding elevated PTH and calcium 1-2 weeks following discharge from IRU. Follow up with Dr. Nice 1 week following discharge from IRU. Due to recent placement of LifeVest, patient is to limit activity until 03/07/18 with a lifting weight restriction of 10 pounds and no pushing/pulling x 1 week ( until 03/11/18) DVT Prophylaxis: Lovenox GI Prophylaxis: Protonix Resuscitation Status: Full Code - Physician Narrative Physician: Cindi Troy MD Narrative: Date: 03/11/18 Time: 1844 I have independently evaluated and examined this patient. I reviewed the chart, the patient's history, and the FILTER TIP INSPECTOR/PA's documented findings as above. We discussed and formulated the assessment and plan as above with additions as below: Mr. Mendez reports that he is doing well and that he feels stable walking. He anticipates discharging tomorrow. He denied dyspnea or chest pain. Respirations nonlabored, good airflow, breath sounds clear. Regular cardiac rhythm. Adjustment in metoprolol dose noted, prescription for new test meter and strips on chart for discharge tomorrow. Discharge plans as above; follow up with Dr. Londono in 2 weeks. Hospital Course Summary Disclaimer: The visit summary below is not to be considered part of the above Progress Note. Hospital Course: Plan - 03/05/18: Agree with admission to IRU for continued strengthening and improvement in functional abilities. Encourage participation in therapies. Monitor closely for signs of worsening depression and mood changes. Dr. Londono to continue to follow regarding hypertension and tachycardia. Multiple medications changes made to home medications during acute inpatient hospitalization. Will continue as follows: * Lipitor 40mg QHS initiated. * Plavix 75mg daily initiated. * NovoLog 7 units with meals initiated. * Metoprolol tartrate 25mg BID initiated. * Lisinopril decreased to 20mg daily. * Lantus increased to 40 units QHS. * Lovenox SQ initiated for DVT prophylaxes. Monitor blood sugars closely. Patient received steroid injection to right should for pain on 03/04 which may increase blood sugars. Adjust insulins as indicated. Patient instructed to follow up with Dr. Chavez regarding elevated PTH and calcium 1-2 weeks following discharge from IRU. Patient instructed to follow up with Dr. Nice 1 week following discharge from IRU. Due to recent placement of LifeVest, patient is to limit activity until 03/07/18 with a lifting weight restriction of 10 pounds and no pushing/pulling x 1 week ( until 03/11/18) Upon discharge, patient's care will be returned to his PCP, Dr. Nice. 03/11/18 Tele stable - sinus with PAC - tele & IV discontinued Slightly tachy today - alerted Maribeth Cast APRN with Dr. Londoon. BP labile but overall improved. Planning on discharge tomorrow - meds already arranged for outpatient use. BGM under good control on Lantus and Metformin.
--- NOTE | 2018-03-11 15:00 | Cardiology Progress Note ---
<Maribeth Cast M - Last Filed: 03/15/18 07:32> Subjective Principal diagnosis: Tachycardia Interval history: Naun is seem in follow up for NICM, HTN and tachycardia. He is in his room on IRU. States he feels like his right side paresthesia is getting better. He looks forward to going home tomorrow. Exam Vital signs: Temperature 98.4 F 03/11/18 07:47 Pulse Rate 114 H 03/11/18 08:19 Respiratory Rate 16 03/11/18 07:47 Blood Pressure 152/105 H 03/11/18 07:47 Pulse Oximetry 95 03/11/18 07:47 Inpatient Medications: Generic Name Dose Route Start Last Admin Trade Name Freq PRN Reason Stop Dose Admin Acetaminophen 650 mg 03/04/18 15:38 Tylenol PO Q6H PRN Fever Acetaminophen/Diphenhydramine HCl 1 tab 03/05/18 19:52 03/10/18 00:05 Tylenol Pm PO 1 tab HS PRN Administration Sleep Hydrocodone Bitart/Acetaminophen 1 - 2 tab 03/04/18 15:38 03/10/18 21:29 [place] 5/325 PO 1 tab Q5H PRN Administration Pain Al Hydroxide/Mg Hydroxide 30 ml 03/04/18 15:38 Maalox Plus PO Q3H PRN Indigestion Aspirin 81 mg 03/05/18 09:00 03/11/18 08:04 Ecotrin PO 81 mg DAILY JUSTA Administration Atorvastatin Calcium 40 mg 03/04/18 21:00 03/10/18 21:17 Lipitor PO 40 mg HS JUSTA Administration Bisacodyl 10 mg 03/04/18 15:38 Dulcolax RECTALLY DAILY PRN Constipation Clopidogrel Bisulfate 75 mg 03/05/18 09:00 03/11/18 08:03 Plavix PO 75 mg DAILY JUSTA Administration Docusate Sodium 100 mg 03/07/18 10:30 03/11/18 08:03 Colace PO 100 mg DAILY JUSTA Administration Enoxaparin Sodium 40 mg 03/05/18 09:00 03/11/18 08:04 Lovenox SQ 40 mg DAILY JUSTA Administration Insulin Aspart 2 - 8 unit 03/04/18 15:38 03/10/18 12:31 Novolog SQ 2 unit SS PRN Administration Hyperglycemia Protocol Insulin Glargine 40 unit 03/04/18 21:00 03/10/18 21:17 Lantus SQ 40 unit HS JUSTA Administration Lisinopril 20 mg 03/05/18 09:00 03/11/18 08:03 Prinivil PO 20 mg DAILY JUSTA Administration Lorazepam 0.5 - 1 mg 03/04/18 15:38 Ativan PO Q4H PRN Anxiety Magnesium Hydroxide 30 ml 03/04/18 15:38 Mom PO DAILY PRN Constipation Metformin HCl 500 mg 03/09/18 17:30 03/11/18 08:03 Glucophage PO 500 mg BIDWM JUSTA Administration Metoprolol Succinate 50 mg 03/08/18 09:00 03/11/18 08:03 Toprol Xl PO 50 mg DAILY [facility] Administration Nitroglycerin 0.4 mg 03/04/18 15:38 Nitrostat SL Q5M PRN Angina Pantoprazole Sodium 20 mg 03/06/18 06:30 03/11/18 06:04 Protonix PO 20 mg ACB JUSTA Administration Polyethylene Glycol 17 gm 03/05/18 09:00 03/11/18 08:04 Miralax PO Not Given DAILY [facility] Senna/Docusate Sodium 1 tab 03/05/18 09:00 03/11/18 08:03 Senna Plus Tablet PO 1 tab DAILY [facility] Administration Sodium Chloride 10 - 80 ml 03/04/18 15:38 03/11/18 08:04 Iv Flush IVF 10 ml PRN PRN Administration Flushing Zolpidem Tartrate 10 mg 03/05/18 19:52 03/08/18 23:23 Ambien PO 10 mg HS PRN Administration Insomnia Discontinued Medications Generic Name Dose Route Start Last Admin Trade Name Freq PRN Reason Stop Dose Admin Aspirin 325 mg 03/05/18 09:00 Asa PO DAILY [facility] Insulin Aspart 7 unit 03/04/18 17:30 03/09/18 17:28 Novolog SQ 7 unit WM [facility] Administration Metoprolol Succinate 25 mg 03/04/18 17:15 03/07/18 08:19 Toprol Xl PO 25 mg DAILY JUSTA Administration Metoprolol Succinate 25 mg 03/07/18 13:29 03/07/18 14:28 Toprol Xl PO 03/07/18 13:30 25 mg O ONE Administration Metoprolol Tartrate 25 mg 03/04/18 17:30 03/05/18 08:22 Lopressor PO Not Given BIDWM [facility] Pharmacy Consult 1 each 03/04/18 15:38 Pharmacy Consult - Fall Risk 03/04/18 15:39 ONE TIME ONE Pharmacy Consult 1 each 03/04/18 15:38 Pharmacy Consult - Fall Risk 03/04/18 15:39 ONE TIME ONE Zolpidem Tartrate 5 mg 03/04/18 15:38 03/04/18 23:45 Ambien PO 5 mg HS PRN Administration Insomnia - Constitutional no acute distress, well nourished, cooperative - Routine HEENT Exam Head: Present: normocephalic ENT: Present: mucous membranes moist - Routine Neck Exam Absent: JVD, carotid bruit - Routine Chest/Breast/Axilla Exam Chest wall: Absent: tenderness - Routine Respiratory Exam Present: CTA bilaterally. Absent: rales, wheezes - Routine Cardiovascular Exam Present: no murmur, tachycardia - Routine Abdominal Exam Present: soft, non tender - Routine Extremities Exam Present: no edema - Routine Skin Exam Present: intact, dry, warm - Routine Neurological Exam Present: alert, oriented X3 Right sided paresthesia - Routine Psychiatric Exam Present: normal affect, normal thought process Results 03/07/18 05:00 03/07/18 05:00 Intake and Output 03/10/18 03/11/18 03/11/18 22:59 06:59 14:59 Intake Total 240 / 240 Balance 240 / 240 Intake: Oral 240 / 240 Other: Stool Color Brown Brown Stool Consistency Soft Soft Loose Formed Size of Bowel Movement Moderate Moderate # Voids 1 # Bowel Movements 1 Assessment and Plan - Assessment and Plan (1) Cardiomyopathy Problem details: Dilated non-ischemic Status: Acute (2) Ischemic cerebrovascular accident (CVA) Status: Acute (3) Diabetes mellitus type 2, uncontrolled, without complications Status: Deleted (4) Obesity (BMI 30-39.9) Status: Chronic (5) Essential (primary) hypertension Status: Chronic - Assessment and Plan 03/07/18 CM:Dilated nonischemic - EF 30-35% - Increase Metoprolol Succinate to 50mg for tachycardia and CM - Life Vest at all times except bathing - Monitor telemetry Ischemic CVA: No thrombus on VALENTINO - SR on telemetry Paresthesia HTN: suboptimal control - Continue Lisinopril 20mg daily - Continue to monitor DM II uncontrolled: - H1C 12.5 - per attending Obesity Thank you for allowing us to participate in the care of this patient. 03/11/18 Increase Metoprolol to 100mg for better HR control. Stable for discharge from Cardiology standpoint. Hospital Course Summary Disclaimer: The visit summary below is not to be considered part of the above Progress Note. Hospital Course: Plan - 03/05/18: Agree with admission to IRU for continued strengthening and improvement in functional abilities. Encourage participation in therapies. Monitor closely for signs of worsening depression and mood changes. Dr. Londono to continue to follow regarding hypertension and tachycardia. Multiple medications changes made to home medications during acute inpatient hospitalization. Will continue as follows: * Lipitor 40mg QHS initiated. * Plavix 75mg daily initiated. * NovoLog 7 units with meals initiated. * Metoprolol tartrate 25mg BID initiated. * Lisinopril decreased to 20mg daily. * Lantus increased to 40 units QHS. * Lovenox SQ initiated for DVT prophylaxes. Monitor blood sugars closely. Patient received steroid injection to right should for pain on 03/04 which may increase blood sugars. Adjust insulins as indicated. Patient instructed to follow up with Dr. Chavez regarding elevated PTH and calcium 1-2 weeks following discharge from IRU. Patient instructed to follow up with Dr. Nice 1 week following discharge from IRU. Due to recent placement of LifeVest, patient is to limit activity until 03/07/18 with a lifting weight restriction of 10 pounds and no pushing/pulling x 1 week ( until 03/11/18) Upon discharge, patient's care will be returned to his PCP, Dr. Nice. 03/11/18 Tele stable - sinus with PAC - tele & IV discontinued Slightly tachy today - alerted Maribeth Cast APRN with Dr. Londono. BP labile but overall improved. Planning on discharge tomorrow - meds already arranged for outpatient use. BGM under good control on Lantus and Metformin. <Frank Londono - Last Filed: 03/17/18 10:38> Exam Vital signs: Temperature 98.0 F 03/12/18 08:00 Pulse Rate 67 03/12/18 08:00 Respiratory Rate 16 03/12/18 08:00 Blood Pressure 149/96 H 03/12/18 08:00 Pulse Oximetry 95 03/12/18 08:00 Inpatient Medications: Discontinued Medications Generic Name Dose Route Start Last Admin Trade Name Freq PRN Reason Stop Dose Admin Acetaminophen 650 mg 03/04/18 15:38 Tylenol PO Q6H PRN Fever Acetaminophen/Diphenhydramine HCl 1 tab 03/05/18 19:52 03/10/18 00:05 Tylenol Pm PO 1 tab HS PRN Administration Sleep Hydrocodone Bitart/Acetaminophen 1 - 2 tab 03/04/18 15:38 03/10/18 21:29 [place] 5/325 PO 1 tab Q5H PRN Administration Pain Al Hydroxide/Mg Hydroxide 30 ml 03/04/18 15:38 Maalox Plus PO Q3H PRN Indigestion Aspirin 325 mg 03/05/18 09:00 Asa PO DAILY JUSTA Aspirin 81 mg 03/05/18 09:00 03/12/18 08:08 Ecotrin PO 81 mg DAILY JUSTA Administration Atorvastatin Calcium 40 mg 03/04/18 21:00 03/11/18 20:41 Lipitor PO 40 mg HS [facility] Administration Bisacodyl 10 mg 03/04/18 15:38 Dulcolax RECTALLY DAILY PRN Constipation Clopidogrel Bisulfate 75 mg 03/05/18 09:00 03/12/18 08:09 Plavix PO 75 mg DAILY [facility] Administration Docusate Sodium 100 mg 03/07/18 10:30 03/12/18 08:09 Colace PO Not Given DAILY [facility] Enoxaparin Sodium 40 mg 03/05/18 09:00 03/12/18 08:09 Lovenox SQ 40 mg DAILY JUSTA Administration Insulin Aspart 2 - 8 unit 03/04/18 15:38 03/11/18 20:43 Novolog SQ 2 unit SS PRN Administration Hyperglycemia Protocol Insulin Aspart 7 unit 03/04/18 17:30 03/09/18 17:28 Novolog SQ 7 unit WM JUSTA Administration Insulin Glargine 40 unit 03/04/18 21:00 03/11/18 20:42 Lantus SQ 40 unit HS JUSTA Administration Lisinopril 20 mg 03/05/18 09:00 03/12/18 08:08 Prinivil PO 20 mg DAILY JUSTA Administration Lorazepam 0.5 - 1 mg 03/04/18 15:38 Ativan PO Q4H PRN Anxiety Magnesium Hydroxide 30 ml 03/04/18 15:38 Mom PO DAILY PRN Constipation Metformin HCl 500 mg 03/09/18 17:30 03/12/18 08:09 Glucophage PO 500 mg BIDWM JUSTA Administration Metoprolol Succinate 25 mg 03/04/18 17:15 03/07/18 08:19 Toprol Xl PO 25 mg DAILY JUSTA Administration Metoprolol Succinate 25 mg 03/07/18 13:29 03/07/18 14:28 Toprol Xl PO 03/07/18 13:30 25 mg O ONE Administration Metoprolol Succinate 50 mg 03/08/18 09:00 03/11/18 08:03 Toprol Xl PO 50 mg DAILY JUSTA Administration Metoprolol Succinate 100 mg 03/12/18 09:00 03/12/18 08:08 Toprol Xl PO 100 mg DAILY JUSTA Administration Metoprolol Succinate 50 mg 03/11/18 15:02 03/11/18 15:21 Toprol Xl PO 03/11/18 15:03 50 mg O ONE Administration Metoprolol Tartrate 25 mg 03/04/18 17:30 03/05/18 08:22 Lopressor PO Not Given BIDWM JUSTA Nitroglycerin 0.4 mg 03/04/18 15:38 Nitrostat SL Q5M PRN Angina Pantoprazole Sodium 20 mg 03/06/18 06:30 03/12/18 06:09 Protonix PO 20 mg ACB JUSTA Administration Pharmacy Consult 1 each 03/04/18 15:38 Pharmacy Consult - Fall Risk 03/04/18 15:39 ONE TIME ONE Pharmacy Consult 1 each 03/04/18 15:38 Pharmacy Consult - Fall Risk 03/04/18 15:39 ONE TIME ONE Polyethylene Glycol 17 gm 03/05/18 09:00 03/12/18 08:09 Miralax PO Not Given DAILY [facility] Senna/Docusate Sodium 1 tab 03/05/18 09:00 03/12/18 08:09 Senna Plus Tablet PO Not Given DAILY [facility] Sodium Chloride 10 - 80 ml 03/04/18 15:38 03/11/18 08:04 Iv Flush IVF 10 ml PRN PRN Administration Flushing Zolpidem Tartrate 5 mg 03/04/18 15:38 03/04/18 23:45 Ambien PO 5 mg HS PRN Administration Insomnia Zolpidem Tartrate 10 mg 03/05/18 19:52 03/11/18 23:05 Ambien PO 10 mg HS PRN Administration Insomnia Results 03/07/18 05:00 03/07/18 05:00 Assessment and Plan - Assessment and Plan (1) Obesity (BMI 30-39.9) Status: Chronic (2) Diabetes mellitus type 2, uncontrolled, without complications Status: Deleted (3) Cardiomyopathy Problem details: Dilated non-ischemic Status: Acute (4) Ischemic cerebrovascular accident (CVA) Status: Acute (5) Essential (primary) hypertension Status: Chronic - Attestation Attestation Narrative: 03/17/18 10:38 Recommendation After examining the patient I agree with the above assessment. I am involved in the formulation of the patient's plan of care. Hospital Course Summary Disclaimer: The visit summary below is not to be considered part of the above Progress Note.
[2018-03-11 20:27] VITALS: PULSE 67; O2SAT 95
[2018-03-11] MEDS: ATORVASTATIN 40 MG TABLET PO SCH (20:41)
[2018-03-11] MEDS: INSULIN GLARGINE 100unit/ml INJECTION SQ SCH (20:42)
[2018-03-11] MEDS: INSULIN ASPART 100unit/ml INJECTION SQ PRN (20:43)
[2018-03-11] MEDS: ZOLPIDEM 10 MG TABLET PO PRN (23:05)
[2018-03-12] MEDS: PANTOPRAZOLE 20 MG TABLET PO SCH (06:09)
[2018-03-12] MEDS: ASPIRIN *EC* 81 MG TABLET PO SCH (08:08)
[2018-03-12] MEDS: LISINOPRIL 20 MG TABLET PO SCH (08:08)
[2018-03-12] MEDS: DOCUSATE SODIUM 100 MG CAPSULE PO SCH (08:09)
[2018-03-12] MEDS: ENOXAPARIN 40 MG/0.4 ML INJECTION SQ SCH (08:09)
[2018-03-12] MEDS: CLOPIDOGREL 75 MG TABLET PO SCH (08:09)
[2018-03-12] MEDS: METFORMIN 500 MG TABLET PO SCH (08:09)
[2018-03-12] MEDS: POLYETHYL GLYCOL 3350 17gm PACKET PO SCH (08:09)
[2018-03-12] MEDS: SENNA + DOCUSATE TABLET PO SCH (08:09)
[2018-03-12 08:47] VITALS: BP 149/96; TEMP 98
== END 2018-03-12 12:45 | disposition home or self-care (01) | DRG 57 ==
PROVIDERS: ADMIT Internal Medicine; ATTEND Internal Medicine